=== PATIENT | male | born 1930 | race Caucasian/White ===

== ENCOUNTER 2017-11-07 21:52 | Inpatient (IN) ==
[2017-11-07] MEDS ORDERED: Naloxone 0.4 MG/ML INJ IVP PRN (23:43)
[2017-11-07] MEDS ORDERED: Acetaminophen 325 MG TABLET PO PRN (23:43)
[2017-11-07] MEDS ORDERED: Potassium Phosphate 44 MEQ in 0.9 % Sodium Chloride 250 ML IVPB PRN (23:47)
--- NOTE | 2017-11-07 23:58 | Internal Med History&Physical ---
<Kaden Brower - Last Filed: 11/08/17 03:51> Date of Encounter: 11/08/17 Time of Encounter: 23:58 Internal Medicine - H&P: HPI Chief complaint: Chest pain Admitted From: Hospital to Hospital Transfer History of present illness: Mr. Go is a 87 year old male with past mental history of prostate, bladder cancer as well with metastases to the bone. Presented to the emergency department at [facility] for a fall out of his wheelchair as well as chest pain. Family states he has been having chest pain for approximately 3 days and generalized weakness. He states had no nausea or vomiting been eating and drinking normal there has been no bloody stools or fevers or recent illnesses. Patient does have cardiac history where he was offered double bypass approximately 10 years ago but declined having this done and wanted to be treated medically. When patient fell day said he slid out of his wheelchair did not hit his head does not lose consciousness remembers the entire event. They said this was a witnessed fall. They said he did not hit his head. Patient's family does say that over the last week or so he seems to be talking randomly and not making sense sometimes but he is alert and oriented at all times. There otherwise is been no recent illnesses fevers chills. Patient did have urinary retention so approximately one week ago he had a Rader placed as had no problems since then. Past Med Surg Social Fam HX - Past Medical History Medical history: cancer, CHF, hypertension, other Psychiatric history: no psych history - Past Surgical History Surgical History: other - Social History Smoking Status: Never smoker Smokeless Tobacco Status: Yes Alcohol use: none Drug use: none Internal Medicine - H&P: Meds Aspirin 325 mg PO 10/07/17 [History] Carvedilol [Coreg] 6.25 mg PO 10/07/17 [History] Cholecalciferol (Vitamin D3) [Vitamin D3] 2,000 unit PO 10/07/17 [History] Lisinopril [Zestril] 20 mg PO DAILY 10/07/17 [History] Nitroglycerin [Nitrostat] 0.4 mg SL 10/07/17 [History] Spironolactone [Aldactone] 25 mg PO DAILY 10/07/17 [History] Triamcinolone Acet 0.1% CRM [Kenalog] 1 appl TP ONCE 10/07/17 [History] 3 Allergy/AdvReac Type Severity Reaction Status Date / Time metoprolol AdvReac Confusion Verified 11/01/17 13:32 montelukast [From Singulair] AdvReac Confusion Verified 11/01/17 13:32 simvastatin [From Zocor] AdvReac Cramping Verified 11/01/17 13:32 of the Muscles All Systems PM: A 10-system review of systems was performed and is negative for pertinent findings except as documented above in the HPI. - Constitutional Constitutional: fatigue, falls, no chills, no fever(s), no night sweats - EENT Eyes: no change in vision, no discharge, no pain, no photophobia Ears: no ear discharge, no ear pain, no tinnitus Nose, mouth and throat: no dysphagia, no nasal discharge, no neck pain, no sore throat - Cardiovascular Cardiovascular ROS IM: chest pain, no diaphoresis, no dyspnea, no lightheadedness, no palpitations, no syncope - Respiratory Respiratory: no cough, no dyspnea, no wheezing, no excessive phlegm production - Gastrointestinal Gastrointestinal: no abdominal pain, no diarrhea, no hematemesis, no hematochezia, no melena, no nausea, no vomiting - Musculoskeletal Musculoskeletal ROS IM: no numbness, no tingling - Integumentary Integumentary IM: no rash, no unusual bruising - Neurological Neurological ROS: no confusion, no convulsions, no focal weakness, no numbness, no tingling, no tremor(s) - Hematologic/Lymphatic Hematologic/Lymphatic: no easy bruising - Head Head exam: Present: atraumatic, normocephalic - Eye Eye exam: Present: PERRL, conjuntiva pink, sclera anicteric Pupils: Present: PERRL - Neck Neck exam general surgery: Present: supple, trachea midline. Absent: lymphadenopathy - Respiratory Respiratory exam: Present: CTAB. Absent: accessory muscle use, rales, rhonchi, wheezes - Cardiovascular Cardiovascular exam: Present: RRR, +S1, +S2. Absent: diastolic murmur, gallop, rubs, systolic murmur - GI/Abdominal GI/Abdominal exam: Present: normal bowel sounds, soft, no peritoneal signs. Absent: distended, tenderness - Extremities Exam Extremities exam: Present: warm, radial pulses palpable and symmetrical. Absent : calf tenderness, cyanotic, pedal edema - Neurological Exam Neurological exam: Present: CN II-XII intact, oriented X3, no focal deficits. Absent: pronater drift, facial droop, speech deficit - Skin Skin exam: Present: dry, intact Internal Med - H&P Results - Labs CBC & Chem 7: 11/08/17 00:33 11/08/17 00:33 - EKG Data -: EKG Interpreted by Myself EKG shows normal: sinus rhythm, axis, ST-T waves Rate: normal - EKG Data Prior EKG available for review: yes When compared to previous EKG: there is no significant change Interpretation IM: other (Left bundle-branch block with no other signs of ischemia. This is an old left bundle) - Assessment and plan (1) NSTEMI (non-ST elevated myocardial infarction) Current Visit: Yes Status: Acute Assessment and plan: Patient had chest pain for approximately 3 days he does have known history as 10 years ago he was offered double bypass but refused it and has been being treated medically. Patient has had no issues since that occurrence. He has never had any stents placed. He is on daily 324 mg aspirin otherwise no other blood thinners. Patient again does not want I passed to be done. [facility] emergency department he had a troponin of 2.4. He was hypotensive so they did not give any nitroglycerin. They did do a loading dose of 4000 units heparin there but did not start a drip. The did speak with cardiology Dr. Nguyen who said to admit here and they will consult with the patient. EKG had no acute ST changes did have left bundle branch which is old. Echocardiogram Daily aspirin full dose continuing home dose. We are going to hold the low-dose heparin at this time due to patient's hematuria. Trend troponins Consult cardiology awaiting recommendations (2) NORY (acute kidney injury) Current Visit: Yes Status: Acute Assessment and plan: Patient does not have any known chronic kidney disease. Creatinine was 3.21 appetite. This most likely is due to prerenal as patient is having poor perfusion. Patient is on lisinopril and spironolactone. He is currently getting 100 and miles per hour of normal saline. Urinalysis did show hematuria with glucose esterase but no nitrates or any bacteria. Most likely this is not a UTI. Patient did have blood in the catheter that was a noticeably dark red. It has since normalized Hold lisinopril and spironolactone. Continue to hydrate patient with 100 mL per hour of normal saline being sure not to over flared resuscitate cause pulmonary edema. 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 Singleton. 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 We will continue to monitor kidney function. Recommend talking to palliative about CODE STATUS and future goals of care. (4) Urinary retention Current Visit: Yes Status: Acute Assessment and plan: Patient does have history urinary retention due to his prostate cancer Rader was placed approximately 2 weeks ago he said no problems since then. He does have clots coming from the urine as well as dark red blood. we will continue to monitor Consult urology, awaiting recommendations (5) Fall Current Visit: Yes Status: Acute Assessment and plan: Patient did have a fall he did not hit his head did not lose consciousness. Patient has been more weak. He is normally wheelchair-bound. Family said there is been no changes to mentation as he is still alert and oriented 3. We will get a head CT before we start the heparin to be sure there is no intracranial bleeding. Although 4000 units heparin given at [facility] before this head CT. Qualifiers: Encounter type: initial encounter Qualified Code(s): W19.XXXA - Unspecified fall, initial encounter (6) DVT prophylaxis Current Visit: Yes Status: Acute Assessment and plan: Holding anticoagulation at this time due to hematuria - Time Spent With Patient Total time spent is greater than 50% in coordination of care (as documented) at patient's floor/unit and/or counseling patient: <NaidaNico - Last Filed: 11/08/17 06:18> Date of Encounter: 11/08/17 Time of Encounter: 02:30 - EENT Eyes: no change in vision Ears: no ear pain, no tinnitus Nose, mouth and throat: no nasal congestion, no sore throat - Cardiovascular Cardiovascular ROS IM: chest pain, no diaphoresis, no dyspnea - Respiratory Respiratory: no cough, no chest congestion - Gastrointestinal Gastrointestinal: no abdominal pain, no diarrhea, no vomiting - Genitourinary Genitourinary ROS male: hematuria, no dysuria, no flank pain - Musculoskeletal Musculoskeletal ROS IM: no joint swelling - Constitutional Vitals: Temp Pulse Resp BP Pulse Ox 98.3 F 73 17 116/58 96 11/08/17 04:00 11/08/17 06:00 11/08/17 06:00 11/08/17 06:00 11/08/17 06:00 General appearance: Present: cooperative, A&O X 3, pleasant - Head Head exam: Present: normal inspection - Eye Eye exam: Present: EOMI, PERRL. Absent: scleral icterus - ENT ENT exam: Present: mucous membranes dry, normal exam - Neck Neck exam general surgery: Present: supple - Respiratory Respiratory exam: Present: CTAB. Absent: rales, rhonchi, wheezes - Cardiovascular Cardiovascular exam: Present: RRR, +S1, +S2 - GI/Abdominal GI/Abdominal exam: Present: normal bowel sounds, soft. Absent: tenderness - Extremities Exam Extremities exam: Present: warm, radial pulses palpable and symmetrical. Absent : calf tenderness, pedal edema, tenderness - Back Exam Back exam: Absent: CVA tenderness (L), CVA tenderness (R) - Neurological Exam Neurological exam: Present: alert, CN II-XII intact, oriented X3, no focal deficits - Psychiatric Psychiatric exam: Present: normal affect, normal mood - Skin Skin exam: Present: dry, warm Internal Med - H&P Results - Labs CBC & Chem 7: 11/08/17 00:33 11/08/17 00:33 Labs: Short CBC 11/08/17 Range/Units 00:33 WBC 16.6 H (4.3-11.1) K/mcL Hgb 8.5 L (12.9-16.9) g/dL Hct 24.5 L (37.5-50.1) % Plt Count 202 (140-400) K/mcL Neutrophils # 13.2 H (1.6-8.9) K/mcL BMP 11/08/17 00:33 Sodium 132 L Potassium 4.1 Chloride 104 Carbon Dioxide 18 L BUN 112 H Creatinine 3.21 H Glucose 120 H Calcium 8.5 L Cardiac Enzymes 11/08/17 Range/Units 00:33 Troponin I 1.87 H* (< 0.04) ng/mL - EKG Data EKG comments: 11/08/17 06:09 LBBB - Impressions ITS Impressions Head CT 11/08/17 00:54 IMPRESSION: Small vessel chronic ischemic changes without acute hemorrhage or definite evidence for acute ischemia. Acute right maxillary sinusitis. D/ / Edy Siomns MD / Edy Simons MD Interpreting Provider: Edy Simons MD - Diagnostic Studies Chest x-ray Status: image reviewed by me (negative) - Attending Attestation I discussed the [facility] [place], past medical history, review of systems, lab data, and exam findings with Dr. Brower. I then saw and examined patient independently as well. He is resting comfortably but he does have some mild chest pain. He has no shortness of breath. He confirms history of coronary disease and the recommendation to undergo coronary artery bypass grafting several years ago. However, he refused and has not truly followed-up with cardiology since then. He now has been having chest pain over the last few days. He also suffers from metastatic prostate and bladder cancer. There were reports of the patient having altered mental status and generalized weakness. There was also concern for possible brain metastases, and so we ordered CT scan of his head and held off on further heparin even though he received a bolus in the ER. Head CT was negative. I was planning on restarting his heparin drip. However, he has developed hematuria with clots of blood in the urine. We will therefore hold off on heparin drip until he is seen by urology. If he continues to have hematuria, he will likely not be a candidate for any cardiac intervention. Additionally, he will need oncologic follow-up as well. Other than my comments above noted physical exam findings, I agree with Dr. Brower's assessment and plan. - Time Spent With Patient Total time spent is greater than 50% in coordination of care (as documented) at patient's floor/unit and/or counseling patient:
[2017-11-08] MEDS: 0.9 % Sodium Chloride 1,000 ML IVC SCH ×3 (00:29→17:36)
[2017-11-08] MEDS ORDERED: *HR* Heparin 5,000 UNIT/ML VIAL IVP PRN ×2 (00:38)
[2017-11-08] MEDS ORDERED: *HR* Heparin 5,000 UNIT/ML VIAL IVP ONE (00:38)
[2017-11-08] MEDS ORDERED: Heparin 25,000 UNIT/500 ML D5W 25,000 UNIT/500 ML BAG IVC SCH (00:45)
[2017-11-08 00:46] LABS: Basophils % 0.2 %; Eosinophils # 0.1 K/mcL (0.0-0.6); Eosinophils % 0.8 %; Hematocrit 24.5 % (37.5-50.1); Hemoglobin 8.5 g/dL (12.9-16.9); Immature Granulocytes % 2.8 % (0-4); Lymphocytes # 1.4 K/mcL (0.6-4.6); Lymphocytes % 8.5 %; Mean Corpuscular HGB Conc 34.7 g/dL (31.6-35.5); Mean Corpuscular Hemoglobin 31.5 pg (28.0-33.3); Mean Corpuscular Volume 90.7 fL (83.0-100.0); Mean Platelet Volume 11.4 fL (9.4-12.4); Monocytes # 1.3 K/mcL (0.0-1.3); Monocytes % 7.7 %; Neutrophils # 13.2 K/mcL (1.6-8.9); Platelet Count 202 K/mcL (140-400); Red Cell Distribution Width 15.1 % (11.5-14.5)
[2017-11-08 00:49] LABS: VBG Ionized Calcium 1.11 mmol/L (1.15-1.35)
[2017-11-08 00:50] LABS: INR 1.3; Prothrombin Time 14.4 Seconds (9.4-12.1)
[2017-11-08 01:01] LABS: Activated Partial Thrombo Time 26.8 Seconds (26.0-36.0)
[2017-11-08 01:07] LABS: Magnesium 1.9 mg/dL (1.6-2.6); Phosphorous 4.2 mg/dL (2.7-4.5)
[2017-11-08 01:08] LABS: Calcium 8.5 mg/dL (8.6-10.3); Potassium 4.1 mEq/L (3.5-5.1)
[2017-11-08] MEDS: Albuterol 2.5 MG/3 ML NEBULIZER IH PRN (06:20)
--- NOTE | 2017-11-08 08:34 | Internal Med Progress Note ---
Date of Encounter: 11/08/17 Time of Encounter: 08:00 - Assessment and plan (1) NSTEMI (non-ST elevated myocardial infarction) Current Visit: Yes Status: Acute Assessment and plan: Ongoing chest pain of 3 days duration. Had refused double bypass about 10 years ago. continue ACS protocol without anticoagulation 2/2 to hematuria. Troponins elevated up to 1.8. Cardiology consulted. F/U 2D echo (2) Prostate cancer metastatic to bone Current Visit: Yes Status: Acute Assessment and plan: Continue outpatient follow up. consult palliative care (3) Hematuria Current Visit: Yes Status: Acute Assessment and plan: Hx of prostate and bladder cancer. Urology consult. hold anticoagulation (4) NORY (acute kidney injury) Current Visit: Yes Status: Acute Assessment and plan: Monitor creatinine. Give IV fluids. Hold nephrotoxic meds (5) Leukocytosis Current Visit: Yes Status: Acute Assessment and plan: Star on ceftriaxone for possible UTi 2/2 to indwelling catheter. Obtain CXR, blood cultures, urinalysis Qualifiers: Leukocytosis type: unspecified Qualified Code(s): D72.829 - Elevated white blood cell count, unspecified (6) Urinary retention Current Visit: Yes Status: Acute Assessment and plan: Rader in place. appreciate urology recs - Time Spent With Patient Total time spent is greater than 50% in coordination of care (as documented) at patient's floor/unit and/or counseling patient: - Subjective Interval history: No acute events overnight - Constitutional Vitals: Temp Pulse Resp BP Pulse Ox 98.6 F 69 20 115/50 96 11/08/17 07:35 11/08/17 08:00 11/08/17 08:00 11/08/17 08:00 11/08/17 08:00 General appearance: Present: cooperative, A&O X 3, pleasant - Head Head exam: Present: atraumatic, normocephalic - Eye Eye exam: Present: PERRL, conjuntiva pink, sclera anicteric Pupils: Present: PERRL - Neck Neck exam general surgery: Present: supple, trachea midline. Absent: lymphadenopathy - Respiratory Respiratory exam: Present: CTAB. Absent: accessory muscle use, rales, rhonchi, wheezes - Cardiovascular Cardiovascular exam: Present: RRR, +S1, +S2. Absent: diastolic murmur, gallop, rubs, systolic murmur - GI/Abdominal GI/Abdominal exam: Present: normal bowel sounds, soft, no peritoneal signs. Absent: distended, tenderness - Extremities Exam Extremities exam: Present: warm, radial pulses palpable and symmetrical. Absent : calf tenderness, cyanotic, pedal edema - Neurological Exam Neurological exam: Present: CN II-XII intact, oriented X3, no focal deficits. Absent: pronater drift, facial droop, speech deficit - Skin Skin exam: Present: dry, intact Internal Medicine: Result - Labs CBC & Chem 7: 11/08/17 00:33 11/08/17 00:33 Labs: Short CBC 11/08/17 Range/Units 00:33 WBC 16.6 H (4.3-11.1) K/mcL Hgb 8.5 L (12.9-16.9) g/dL Hct 24.5 L (37.5-50.1) % Plt Count 202 (140-400) K/mcL Neutrophils # 13.2 H (1.6-8.9) K/mcL BMP 11/08/17 00:33 Sodium 132 L Potassium 4.1 Chloride 104 Carbon Dioxide 18 L BUN 112 H Creatinine 3.21 H Glucose 120 H Calcium 8.5 L Cardiac Enzymes 11/08/17 11/08/17 Range/Units 00:33 06:20 Troponin I 1.87 H* 1.52 H* (< 0.04) ng/mL - ABG Interpretation ABG results: PT/INR, D-dimer PT 14.4 Seconds (9.4-12.1) H 11/08/17 00:33 - Impressions Impressions Head CT 11/08/17 00:54 IMPRESSION: Small vessel chronic ischemic changes without acute hemorrhage or definite evidence for acute ischemia. Acute right maxillary sinusitis. D/ / Edy Simons MD / Edy Simons MD Interpreting Provider: Edy Simons MD Consult Discharge Plan - Plan Referrals: Aysha Huddleston CNP [Primary Care Provider] - Lacho Bucio DO [Family Provider] -
[2017-11-08] MEDS ORDERED: Lisinopril 20 MG TABLET PO SCH (09:00)
[2017-11-08] MEDS ORDERED: Spironolactone 25 MG TABLET PO SCH (09:00)
[2017-11-08] MEDS ORDERED: Perflutren Lipid Microsphere 1.3 ML in 0.9 % Sodium Chloride 8.7 ML IVP ONE (12:22)
--- NOTE | 2017-11-08 12:54 | Palliative - Consult Note ---
Date of Encounter: 11/08/17 Time of Encounter: 13:45 - Assessment and Plan (1) Back pain Current Visit: Yes Status: Acute Assessment and plan: Will begin Tramadol 50 mg every 6 hours PRN and monitor. Qualifiers: Back pain location: low back pain Chronicity: chronic Back pain laterality: midline Sciatica laterality: sciatica laterality unspecified Qualified Code(s): M54.40 - Lumbago with sciatica, unspecified side; G89.29 - Other chronic pain (2) Counseling regarding advanced directives and goals of care Current Visit: Yes Status: Acute Assessment and plan: Attempted goals of care discussion with pt, 2 sons (Mohinder and Fred) and daughter Shanta. Updated on clinical status - echo and cardiology consult pending. All children are aware that pt has refused heart cath, and invasive interventions. He lives at home with nephew (22 yrs old) that he has raised from a small child. His 5 years ago. He has no advanced directives in place. Discussion code status - pt did not make a decision at this time. Discussed that he would think about it. Discussed d/c options, rehab/home health/hospice, and will have social work follow up tomorrow. Will await further testing, he may not be eligible for hospice at current state. Family very interested in home health/passport services. Offered completion of POA while in hospital. Difficult to keep pt on track for conversation. Will f/u tomorrow with pt/family. (3) NSTEMI (non-ST elevated myocardial infarction) Current Visit: Yes Status: Acute Assessment and plan: Cardiology has been consulted. Patient refuses heart cath. Awaiting echo to be read. (4) Prostate cancer metastatic to bone Current Visit: Yes Status: Acute Assessment and plan: Urology following. (5) NORY (acute kidney injury) Current Visit: Yes Status: Acute Palliative-CN HPI - Data of Consult Requesting Physician: Denny Arvizu MD Primary Care Provider: Aysha Huddleston CNP Family Provider: Lacho Bucio DO - Consult Narrative History of present illness: Mr. Go is a 87 year old male with past mental history of prostate cancer with bone mets. bladder cancer, CHF, and HTN. He has a long history as well of skin cancers that have been removed. Presented to the emergency department at [facility] for a fall out of his wheelchair as well as chest pain. Family states he has been having chest pain for approximately 3 days and generalized weakness, also decreased appetite. Patient does have cardiac history where he was offered double bypass approximately 10 years ago but declined having this done and wanted to be treated medically. Troponin's have been elevated since admission - he received Heparin bolus, no initiation of heparin drip. Cardiology consult is pending. Patient's family does say that over the last week or so he seems to be talking randomly and not making sense sometimes but he is alert and oriented at times. Patient did have urinary retention family states that Rader placed about 5 weeks ago and has had no problems. He gets injections for prostate cancer, and just restarted these last month. (Dr. [facility]). He has not seen an oncologist since Dr. Weber left [place]. He currently is alert, awake and chatting with family. Does c/o mid back pain, and states he cannot get comfortable. Refused meals today, drinking liquids. Denies any other complaints. 2 sons and daughter at bedside. CC: Denny Arvizu MD Past Med Surg Social Fam HX - Past Medical History Medical history: cancer, CHF, hypertension, other Psychiatric history: no psych history - Past Surgical History Surgical History: other - Social History Smoking Status: Never smoker Smokeless Tobacco Status: Yes Alcohol use: none Drug use: none Medications and Allergies Aspirin 325 mg PO DAILY 10/07/17 [History] Carvedilol [Coreg] 6.25 mg PO BID 10/07/17 [History] Cholecalciferol (Vitamin D3) [Vitamin D3] 2,000 unit PO DAILY 10/07/17 [History] Lisinopril [Zestril] 20 mg PO DAILY 10/07/17 [History] Nitroglycerin [Nitrostat] 0.4 mg SL Q5MIN PRN 10/07/17 [History] Spironolactone [Aldactone] 25 mg PO DAILY 10/07/17 [History] Triamcinolone Acet 0.1% CRM [Kenalog] 1 appl TP DAILY 10/07/17 [History] Tamsulosin [Flomax] 0.4 mg PO DAILY 11/08/17 [History] 3 Allergy/AdvReac Type Severity Reaction Status Date / Time metoprolol AdvReac Confusion Verified 11/08/17 08:56 montelukast [From Singulair] AdvReac Confusion Verified 11/08/17 08:56 simvastatin [From Zocor] AdvReac Cramping Verified 11/08/17 08:56 of the Muscles Palliative Care-Exam - Constitutional Vitals: Temp Pulse Resp BP Pulse Ox 97.8 F 69 18 109/63 96 11/08/17 12:43 11/08/17 12:43 11/08/17 12:43 11/08/17 12:43 11/08/17 12:43 Internal Medicine - CN: Reslt - Labs CBC & Chem 7: 11/08/17 00:33 11/08/17 00:33 Labs: Short CBC 11/08/17 Range/Units 00:33 WBC 16.6 H (4.3-11.1) K/mcL Hgb 8.5 L (12.9-16.9) g/dL Hct 24.5 L (37.5-50.1) % Plt Count 202 (140-400) K/mcL Neutrophils # 13.2 H (1.6-8.9) K/mcL BMP 11/08/17 00:33 Sodium 132 L Potassium 4.1 Chloride 104 Carbon Dioxide 18 L BUN 112 H Creatinine 3.21 H Glucose 120 H Calcium 8.5 L Cardiac Enzymes 11/08/17 11/08/17 Range/Units 00:33 06:20 Troponin I 1.87 H* 1.52 H* (< 0.04) ng/mL - ABG Interpretation ABG results: PT/INR, D-dimer PT 14.4 Seconds (9.4-12.1) H 11/08/17 00:33 - Impressions Impressions Head CT 11/08/17 00:54 IMPRESSION: Small vessel chronic ischemic changes without acute hemorrhage or definite evidence for acute ischemia. Acute right maxillary sinusitis. D/ / Edy Simons MD / Edy Simons MD Interpreting Provider: Edy Simons MD Chest X-Ray 11/08/17 08:26 IMPRESSION: Stable chest with no new acute cardiopulmonary findings. D/ / Lolis Betts MD / Lolis Betts MD Interpreting Provider: Lolis Betts MD Consult Discharge Plan - Plan Referrals: Lacho Bucio DO [Family Provider] - Aysha Huddleston, [employer] OPERATOR [Primary Care Provider] - Palliative Quality Palliative Quality: Screen for Code Status: Yes, Screen for Goals of Care: Yes, Screen for Pain: Yes, If Pain Regimen Started, Initiate Bowel Regimen: NA, Screen for Nausea/Vomitting: Yes Code Status: 11/07/17 23:43 Resuscitation Status: Active [RES] Routine Comment: Resuscitation Status: Full Code
--- NOTE | 2017-11-08 13:34 | Cardiology Consult Note ---
Date of Encounter: 11/08/17 Time of Encounter: 13:30 Assessment and Plan (1) NSTEMI (non-ST elevated myocardial infarction) Current Visit: Yes Status: Acute Conservative medical management due to known extensive CAD and patient and son both decline any invasive cardiac procedures. They agree with an ECHO for risk stratification for his comorbidities. ASA 81 mg daily if not contraindicated Metoprolol 12.5 mg BID titrate as tolerated Heparin IV if troponins continue to rise above 3 for 48 hours and hold Discussion w patient/family: The assessment and plan as outlined above was discussed with the patient and/or family members who expressed understanding and agreement. All questions were answered. Thank you for involving us in the care of your patient. Please call with any questions. History of Present Illness Consult date: 11/08/17 Consult reason: NSTEMI Chief complaint: Chest Pain History of present illness: Mr. Go is a 87 year old male with long standing hx of severe CAD but has refused CABG and PCI > 10 years ago. He currently presents with prostate/ bladder CA with mets found to have a NSTEMI. Patient and son bot decline any invasive cardiac procedures understanding the high risk of morbidity and mortality not proceeding with LHC/CABG. Patient has multiple CRF's and comorbidities which place the patient at high risk for complications with a LHC. Both patient and son agree with conservative medical management. Past Med Surg Social Fam HX - Past Medical History Medical history: cancer, CHF, hypertension, other Psychiatric history: no psych history - Past Surgical History Surgical History: other - Social History Smoking Status: Never smoker Smokeless Tobacco Status: Yes Alcohol use: none Drug use: none Medications and Allergies Aspirin 325 mg PO DAILY 10/07/17 [History] Carvedilol [Coreg] 6.25 mg PO BID 10/07/17 [History] Cholecalciferol (Vitamin D3) [Vitamin D3] 2,000 unit PO DAILY 10/07/17 [History] Lisinopril [Zestril] 20 mg PO DAILY 10/07/17 [History] Nitroglycerin [Nitrostat] 0.4 mg SL Q5MIN PRN 10/07/17 [History] Spironolactone [Aldactone] 25 mg PO DAILY 10/07/17 [History] Triamcinolone Acet 0.1% CRM [Kenalog] 1 appl TP DAILY 10/07/17 [History] Tamsulosin [Flomax] 0.4 mg PO DAILY 11/08/17 [History] 3 Allergy/AdvReac Type Severity Reaction Status Date / Time metoprolol AdvReac Confusion Verified 11/08/17 08:56 montelukast [From Singulair] AdvReac Confusion Verified 11/08/17 08:56 simvastatin [From Zocor] AdvReac Cramping Verified 11/08/17 08:56 of the Muscles All Systems Review: The remainder of the systems were reviewed and are negative Physical Examination Vital Signs, Last 4 Hours Temp Pulse Resp BP Pulse Ox 11/08/17 12:58 97.8 F 69 18 109/63 96 11/08/17 12:43 97.8 F 69 18 109/63 96 General: Conversant, No Apparent Distress HEENT: Atraumatic, Normocephaly, Mucus Membranes Moist Neck: No JVD, Normal carotid pulses Cardiac: Reg Rate and Rhythm, Normal S1 and S2, No Murmur Lungs: Normal Breath Sounds, No Wheeze, Rales, Rhonchi Neuro: Alert and responsive, No focal deficits noted Abdomen: Soft, Non-Tender Skin: No rashes noted on visualized skin Musculoskeletal: No Chest Wall Tenderness Extremities: No Clubbing, No Cyanosis, No Edema, Normal Pulses Results 11/08/17 00:33 11/08/17 00:33 Lab Results 11/08/17 11/08/17 11/08/17 00:33 00:33 00:33 WBC 16.6 H Hgb 8.5 L Hct 24.5 L Plt Count 202 INR APTT Sodium Potassium Chloride Carbon Dioxide BUN Creatinine Glucose Calcium Magnesium 1.9 Troponin I 1.87 H* 11/08/17 11/08/17 11/08/17 00:33 00:33 06:20 WBC Hgb Hct Plt Count INR 1.3 APTT 26.8 Sodium 132 L Potassium 4.1 Chloride 104 Carbon Dioxide 18 L BUN 112 H Creatinine 3.21 H Glucose 120 H Calcium 8.5 L Magnesium Troponin I 1.52 H* 11/08/17 12:32 WBC Hgb Hct Plt Count INR APTT Sodium Potassium Chloride Carbon Dioxide BUN Creatinine Glucose Calcium Magnesium Troponin I 1.26 H* Consult Discharge Plan - Plan Referrals: Lacho Bucio DO [Family Provider] - Aysha Huddleston CNP [Primary Care Provider] -
[2017-11-08] MEDS: Aspirin 325 MG TABLET PO SCH (14:04)
[2017-11-08] MEDS: cefTRIAXone 2,000 MG in Water for inj. (sterile) 20 ML 20 ML IVP SCH (14:16)
[2017-11-08] MEDS: Cholecalciferol (D-3) 1,000 UNIT TABLET PO SCH (14:16)
--- NOTE | 2017-11-08 15:23 | Urology - Consult Note ---
Date of Encounter: 11/08/17 Time of Encounter: 15:21 - Assessment and Plan (1) NORY (acute kidney injury) Current Visit: Yes Status: Acute Assessment and plan: Patient's serum creatinine still elevated. We will wait for repeat tomorrow. No obvious hydronephrosis seen on CT scan. (2) Hematuria Current Visit: Yes Status: Acute Assessment and plan: Unsure it secondary to traumatic catheter placement or if patient has bladder tumor and bladder. Patient has declined surveillance cystoscopy in the past. We will continue with observation. 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 Expect patient's PSA to slowly decrease. (4) Urinary retention Current Visit: Yes Status: Acute Assessment and plan: Unsure of true the urinary retention as I am unable to find documentation of volume returned from initial catheter placement. We will continue with catheter at this time. Urology CN:HPI Consult date: 11/08/17 Reason for consult Urology: Gross Hematuria Requesting physician: Nico Pascal History of present illness: Jacob is a 87-year-old male well known to me secondary to history of bladder cancer as well as metastatic prostate cancer. Patient was seen by me last week and underwent Lupron shot for his metastatic prostate cancer. Patient now subsequently admitted to the hospital secondary to failure to thrive and recent fall. According the patient's son, patient has had minimal appetite for quite some time. Patient had catheter placed upon arrival to the hospital. He did have some blood in the catheter after placement. It is draining clear urine at this time. Patient was also found to have a elevated serum creatinine. Patient did have a CT abdomen and pelvis done which revealed multiple metastatic lesions as well as pelvic lymphadenopathy. No hydronephrosis was seen. Past Med Surg Social Fam HX - Past Medical History Medical history: cancer, CHF, hypertension, other Psychiatric history: no psych history - Past Surgical History Surgical History: other - Social History Smoking Status: Never smoker Smokeless Tobacco Status: Yes Alcohol use: none Drug use: none Medications and Allergies Aspirin 325 mg PO DAILY 10/07/17 [History] Carvedilol [Coreg] 6.25 mg PO BID 10/07/17 [History] Cholecalciferol (Vitamin D3) [Vitamin D3] 2,000 unit PO DAILY 10/07/17 [History] Lisinopril [Zestril] 20 mg PO DAILY 10/07/17 [History] Nitroglycerin [Nitrostat] 0.4 mg SL Q5MIN PRN 10/07/17 [History] Spironolactone [Aldactone] 25 mg PO DAILY 10/07/17 [History] Triamcinolone Acet 0.1% CRM [Kenalog] 1 appl TP DAILY 10/07/17 [History] Tamsulosin [Flomax] 0.4 mg PO DAILY 11/08/17 [History] 3 Allergy/AdvReac Type Severity Reaction Status Date / Time metoprolol AdvReac Confusion Verified 11/08/17 08:56 montelukast [From Singulair] AdvReac Confusion Verified 11/08/17 08:56 simvastatin [From Zocor] AdvReac Cramping Verified 11/08/17 08:56 of the Muscles Review of Systems ROS unobtainable: due to mental status Exam Initial Vital Signs Temp Pulse Resp BP Pulse Ox 98.0 F 74 18 103/55 96 11/07/17 23:49 11/07/17 23:49 11/07/17 23:49 11/07/17 23:49 11/07/17 23:49 General/Neuological: alert and oriented x 3 Eyes: normal pupils, non-icteric Neck: no lymphadenopathy noted, supple to touch Cardiovascular: RRR, no murmurs Respiratory: normal respiratory effort, clear bilaterally ABD: soft, nontender, no masses palpated, good bowel sounds Back: no pain on percussion bilaterally : normal phallus, normal scrotum, testicles and epididymides normal, urethral meatus normal, catheter in place draining clear urine. There is some old blood in the tubing. Rectal: Declined by the patient Skin: no rashes noted Musculoskeletal: normal gait, FROMx4 Urology Results - Labs 11/08/17 00:33 11/08/17 00:33 Abnormal lab results WBC 16.6 K/mcL (4.3-11.1) H 11/08/17 00:33 RBC 2.70 M/mcL (4.19-5.50) L 11/08/17 00:33 Hgb 8.5 g/dL (12.9-16.9) L 11/08/17 00:33 Hct 24.5 % (37.5-50.1) L 11/08/17 00:33 RDW 15.1 % (11.5-14.5) H 11/08/17 00:33 Neutrophils # 13.2 K/mcL (1.6-8.9) H 11/08/17 00:33 PT 14.4 Seconds (9.4-12.1) H 11/08/17 00:33 Sodium 132 mEq/L (136-145) L 11/08/17 00:33 Carbon Dioxide 18 mEq/L (23-29) L 11/08/17 00:33 BUN 112 mg/dL (8-23) H 11/08/17 00:33 Creatinine 3.21 mg/dL (0.70-1.30) H 11/08/17 00:33 Est GFR ( Amer) 22 (> 60) L 11/08/17 00:33 Est GFR (Non-Af Amer) 18 (> 60) L 11/08/17 00:33 BUN/Creatinine Ratio 35 (6-26) H 11/08/17 00:33 Glucose 120 mg/dL (70-105) H 11/08/17 00:33 POC Glucose 108 mg/dL (70-99) H 11/08/17 05:31 Calculated Osmolality 311 (280-300) H 11/08/17 00:33 Calcium 8.5 mg/dL (8.6-10.3) L 11/08/17 00:33 Venous Ioniz Calcium 1.11 mmol/L (1.15-1.35) L 11/08/17 00:44 Troponin I 1.26 ng/mL (< 0.04) H* 11/08/17 12:32 Diabetes panel 11/08/17 Range/Units 00:33 Sodium 132 L (136-145) mEq/L Potassium 4.1 (3.5-5.1) mEq/L Chloride 104 (98-107) mEq/L Carbon Dioxide 18 L (23-29) mEq/L BUN 112 H (8-23) mg/dL Creatinine 3.21 H (0.70-1.30) mg/dL Glucose 120 H (70-105) mg/dL Calcium 8.5 L (8.6-10.3) mg/dL Calcium panel 11/08/17 11/08/17 Range/Units 00:33 00:33 Calcium 8.5 L (8.6-10.3) mg/dL Phosphorus 4.2 (2.7-4.5) mg/dL Pituitary panel 11/08/17 Range/Units 00:33 Sodium 132 L (136-145) mEq/L Potassium 4.1 (3.5-5.1) mEq/L Chloride 104 (98-107) mEq/L Carbon Dioxide 18 L (23-29) mEq/L BUN 112 H (8-23) mg/dL Creatinine 3.21 H (0.70-1.30) mg/dL Glucose 120 H (70-105) mg/dL Calcium 8.5 L (8.6-10.3) mg/dL Adrenal panel 11/08/17 Range/Units 00:33 Sodium 132 L (136-145) mEq/L Potassium 4.1 (3.5-5.1) mEq/L Chloride 104 (98-107) mEq/L Carbon Dioxide 18 L (23-29) mEq/L BUN 112 H (8-23) mg/dL Creatinine 3.21 H (0.70-1.30) mg/dL Glucose 120 H (70-105) mg/dL Calcium 8.5 L (8.6-10.3) mg/dL All other labs normal. - Imaging CT scan - abdomen: image reviewed CT scan - pelvis: image reviewed Consult Discharge Plan - Plan Referrals: Lacho Bucio DO [Family Provider] - Aysha Huddleston, SARA [Primary Care Provider] -
[2017-11-08] MEDS: traMADol 50 MG TABLET PO PRN (16:21)
[2017-11-08] MEDS: *HR* Heparin 5,000 UNIT/ML VIAL SQ SCH (16:22)
[2017-11-09] MEDS: 0.9 % Sodium Chloride 1,000 ML IVC SCH ×2 (00:18→10:35)
[2017-11-09] MEDS: traMADol 50 MG TABLET PO PRN (00:33)
[2017-11-09 03:32] LABS: Acinetobacter baumannii by PCR Not Detected (Not Detect); Candida albicans by PCR Not Detected (Not Detect); Candida glabrata by PCR Not Detected (Not Detect); Candida krusei by PCR Not Detected (Not Detect); Candida parapsilosis by PCR ***DETECTED*** (Not Detect); Candida tropicalis by PCR Not Detected (Not Detect); Enterococcus by PCR Not Detected (Not Detect); Escherichia coli by PCR Not Detected (Not Detect); Klebsiella oxytoca by PCR Not Detected (Not Detect); Klebsiella pneumoniae by PCR Not Detected (Not Detect); Pseudomonas aeruginosa by PCR Not Detected (Not Detect); Serratia marcescens by PCR Not Detected (Not Detect); Staphylococcus aureus by PCR Not Detected (Not Detect); Streptococcus agalactiae(B)PCR Not Detected (Not Detect); Streptococcus by PCR Not Detected (Not Detect); Streptococcus pneumoniae PCR Not Detected (Not Detect); Streptococcus pyogenes (A) PCR Not Detected (Not Detect); blaKPC Carbapenem-Resist Gene Not Detected (Not Detect)
[2017-11-09] MEDS: *HR* Heparin 5,000 UNIT/ML VIAL SQ SCH ×2 (05:26→17:31)
[2017-11-09 06:26] LABS: Hematocrit 23.1 % (37.5-50.1); Hemoglobin 7.6 g/dL (12.9-16.9); Mean Corpuscular HGB Conc 32.9 g/dL (31.6-35.5); Mean Corpuscular Hemoglobin 30.5 pg (28.0-33.3); Mean Corpuscular Volume 92.8 fL (83.0-100.0); Mean Platelet Volume 11.4 fL (9.4-12.4); Platelet Count 235 K/mcL (140-400); Red Blood Count 2.49 M/mcL (4.19-5.50); Red Cell Distribution Width 15.4 % (11.5-14.5)
[2017-11-09 06:47] LABS: Calcium 8.4 mg/dL (8.6-10.3); Potassium 4.6 mEq/L (3.5-5.1)
[2017-11-09 07:09] LABS: Eosinophils # 0.3 K/mcL (0.0-0.6); Lymphocytes # 1.1 K/mcL (0.6-4.6); Monocytes # 0.8 K/mcL (0.0-1.3); Platelet Estimate Normal (Normal)
[2017-11-09 07:10] LABS: Hypochromasia Present (Not Present)
[2017-11-09] MEDS ORDERED: Fluconazole 400 MG/200 ML 400 MG/200 ML BAG IVPB ONE (07:40)
[2017-11-09] MEDS ORDERED: traMADol 50 MG TABLET PO PRN (10:04)
[2017-11-09] MEDS: Cholecalciferol (D-3) 1,000 UNIT TABLET PO SCH (10:33)
[2017-11-09] MEDS: cefTRIAXone 2,000 MG in Water for inj. (sterile) 20 ML 20 ML IVP SCH (10:34)
[2017-11-09] MEDS: Aspirin 325 MG TABLET PO SCH (10:37)
[2017-11-09] MEDS: Albuterol 2.5 MG/3 ML NEBULIZER IH PRN ×2 (10:55→14:44)
--- NOTE | 2017-11-09 11:04 | Urology Progress Note ---
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 No additional therapy at this time. (4) Urinary retention Current Visit: Yes Status: Acute Assessment and plan: Patient will need to continue with catheter. He will need follow-up in 3 weeks for possible catheter change. Call with any questions. Progress Note Narrative: Patient seen this morning. Patient still with poor appetite. Urine has cleared in catheter. Objective Initial Vital Signs Temp Pulse Resp BP Pulse Ox 98.0 F 74 18 103/55 96 11/07/17 23:49 11/07/17 23:49 11/07/17 23:49 11/07/17 23:49 11/07/17 23:49 - General physical appearance Present: well developed, no pain - Abdomen Present: soft. Absent: tender - Genitourinary Present: normal penis with no external lesions (Urine clear in catheter tubing) , other - Labs 11/09/17 05:55 11/09/17 05:55 Diabetes panel 11/09/17 Range/Units 05:55 Sodium 137 (136-145) mEq/L Potassium 4.6 (3.5-5.1) mEq/L Chloride 111 H (98-107) mEq/L Carbon Dioxide 16 L (23-29) mEq/L BUN 99 H (8-23) mg/dL Creatinine 2.52 H (0.70-1.30) mg/dL Glucose 110 H (70-105) mg/dL Calcium 8.4 L (8.6-10.3) mg/dL Calcium panel 11/09/17 Range/Units 05:55 Calcium 8.4 L (8.6-10.3) mg/dL Pituitary panel 11/09/17 Range/Units 05:55 Sodium 137 (136-145) mEq/L Potassium 4.6 (3.5-5.1) mEq/L Chloride 111 H (98-107) mEq/L Carbon Dioxide 16 L (23-29) mEq/L BUN 99 H (8-23) mg/dL Creatinine 2.52 H (0.70-1.30) mg/dL Glucose 110 H (70-105) mg/dL Calcium 8.4 L (8.6-10.3) mg/dL Adrenal panel 11/09/17 Range/Units 05:55 Sodium 137 (136-145) mEq/L Potassium 4.6 (3.5-5.1) mEq/L Chloride 111 H (98-107) mEq/L Carbon Dioxide 16 L (23-29) mEq/L BUN 99 H (8-23) mg/dL Creatinine 2.52 H (0.70-1.30) mg/dL Glucose 110 H (70-105) mg/dL Calcium 8.4 L (8.6-10.3) mg/dL Consult Discharge Plan - Plan Referrals: Lacho Bucio DO [Family Provider] - Aysha Huddleston, SARA [Primary Care Provider] -
--- NOTE | 2017-11-09 11:11 | Event Note ---
Date of Encounter: 11/09/17 Time of Encounter: 11:08 - Cardiology Event Note TTE resulted--LVEF 10-15%. Severe LV systolic dysfunction. Severely dilated left ventricle. Diastolic dysfunction with elevated filling pressures. There is no LV thrombus. Definity echo contrast was used. Mild mitral regurgitation. Unable to estimate RVSP due to suboptimal TR gradient. IVC is dilated. Dr. Beck discussed options with pt and family yesterday, they declined all invasive procedures, wanted medical management only. Continue BB, ASA. ACEi if BP is able to tolerate. Would recommend statin if pt agreeable. Simvastatin listed as allergy. Agree with palliative consult given significantly reduced EF and since pt and family do not wish to pursue any invasive evaluation. Cardiology signing off. Reconsult PRN.
--- NOTE | 2017-11-09 12:03 | Palliative Progress Note ---
Date of Encounter: 11/09/17 Time of Encounter: 12:00 - Assessment and plan (1) Back pain Current Visit: Yes Status: Acute Assessment and plan: Continue Tramadol PRN Qualifiers: Back pain location: low back pain Chronicity: chronic Back pain laterality: midline Sciatica laterality: sciatica laterality unspecified (2) Counseling regarding advanced directives and goals of care Current Visit: Yes Status: Acute Assessment and plan: Met with pt, son, Mohinder, and daughter, Shanta regarding goals of care. Discussed results of echocardiogram. Patient desires best quality of life possible, and wishes to go home. They ultimately would like to enroll in hospice care, however, he did have blood culture come back + this am and Id consult pending. At this time, pt/family do wish to treat infection, and understand that hospice may be on hold depending upon the cost/length of treatment. Did discuss code status, and they did transition to DNRCC. He has nephew 22y/o that lives with him, but nephew has some limitations. Son will be moving onto patient's property within the next week or two. Will continue to follow closely. He will need multiple DME's set up prior to discharge. D/W Dr. Pierce. (3) NSTEMI (non-ST elevated myocardial infarction) Current Visit: Yes Status: Acute (4) Prostate cancer metastatic to bone Current Visit: Yes Status: Acute (5) NORY (acute kidney injury) Current Visit: Yes Status: Acute - Time Spent With Patient Total time spent is greater than 50% in coordination of care (as documented) at patient's floor/unit and/or counseling patient: 25 - 35 minutes - Subjective Interval history: Patient awake and alert, son Mohinder and daughter Shanta at bedside. He has been a little more comfortable since initiation of Tramadol. Vitals stable. Echocardiogram from yesterday noted - EF 15-20%. Severe LV systolic dysfunction. Severely dilated left ventricle. Diastolic dysfunction with elevated filling pressures. Mild mitral regurgitation. Unable to estimate RVSP due to suboptimal TR gradient. IVC is dilated. He is dyspneic with any exertion. Blood cultures + resulted this am. ID consult pending. - Constitutional Vitals: Abnormal lab results WBC 13.8 K/mcL (4.3-11.1) H 11/09/17 05:55 RBC 2.49 M/mcL (4.19-5.50) L 11/09/17 05:55 Hgb 7.6 g/dL (12.9-16.9) L 11/09/17 05:55 Hct 23.1 % (37.5-50.1) L 11/09/17 05:55 RDW 15.4 % (11.5-14.5) H 11/09/17 05:55 Myelocytes % 4.0 % (0) H 11/09/17 05:55 Neutrophils # 11.0 K/mcL (1.6-8.9) H 11/09/17 05:55 Hypochromasia Present (Not Present) A 11/09/17 05:55 PT 14.4 Seconds (9.4-12.1) H 11/08/17 00:33 Chloride 111 mEq/L (98-107) H 11/09/17 05:55 Carbon Dioxide 16 mEq/L (23-29) L 11/09/17 05:55 BUN 99 mg/dL (8-23) H 11/09/17 05:55 Creatinine 2.52 mg/dL (0.70-1.30) H 11/09/17 05:55 Est GFR ( Amer) 30 (> 60) L 11/09/17 05:55 Est GFR (Non-Af Amer) 24 (> 60) L 11/09/17 05:55 BUN/Creatinine Ratio 39 (6-26) H 11/09/17 05:55 Glucose 110 mg/dL (70-105) H 11/09/17 05:55 POC Glucose 108 mg/dL (70-99) H 11/08/17 05:31 Calculated Osmolality 315 (280-300) H 11/09/17 05:55 Calcium 8.4 mg/dL (8.6-10.3) L 11/09/17 05:55 Venous Ioniz Calcium 1.11 mmol/L (1.15-1.35) L 11/08/17 00:44 Troponin I 1.26 ng/mL (< 0.04) H* 11/08/17 12:32 C. parapsilosis (PCR) DETECTED (Not Detect) A 11/08/17 12:32 Enterobacteriac sp PCR DETECTED (Not Detect) A 11/08/17 12:32 E. cloacae complex PCR DETECTED (Not Detect) A 11/08/17 12:32 General appearance: Present: mild distress - Respiratory Respiratory exam: Present: decreased breath sounds Additional comments: Rales noted to bases - Cardiovascular Cardiovascular exam: Present: irregular rhythm - GI/Abdominal GI/Abdominal exam: Present: diminished bowel sounds, distended, soft - Extremities Exam Additional comments: generalized edema to all extremities - Neurological Exam Neurological exam: Present: alert, oriented X3, strengths equal and symetr throughout - Skin Skin exam: Present: dry, pallor, warm Palliative Quality Palliative Quality: Screen for Code Status: Yes, Screen for Goals of Care: Yes, Screen for Pain: Yes, If Pain Regimen Started, Initiate Bowel Regimen: NA, Screen for Nausea/Vomitting: Yes Code Status: 11/07/17 23:43 Resuscitation Status: Active [RES] Routine Comment: Resuscitation Status: Full Code 11/09/17 12:00 DNR [Resuscitation Status: Active] [RES] Routine Comment: Resuscitation Status: DNR-Comfort Care - Labs CBC & Chem 7: 11/09/17 05:55 11/09/17 05:55 Labs: Laboratory Results - last 24 hr 11/08/17 11/08/17 11/09/17 12:32 12:32 05:55 WBC RBC Hgb Hct MCV MCH MCHC RDW Plt Count MPV Seg Neutrophils % Band Neutrophils % Lymphocytes % Monocytes % Eosinophils % Myelocytes % Neutrophils # Lymphocytes # Monocytes # Eosinophils # Platelet Estimate Hypochromasia APTT 28.0 Sodium Potassium Chloride Carbon Dioxide BUN Creatinine Est GFR ( Amer) Est GFR (Non-Af Amer) BUN/Creatinine Ratio Glucose Calculated Osmolality Calcium Troponin I 1.26 H* A. baumannii (PCR) Not Detected Vicki albicans (PCR) Not Detected C. glabrata (PCR) Not Detected C. krusei (PCR) Not Detected C. parapsilosis (PCR) DETECTED A C. tropicalis (PCR) Not Detected Enterobacteriac sp PCR DETECTED A E. cloacae complex PCR DETECTED A Enterococcus sp PCR Not Detected E. coli (PCR) Not Detected H. influenzae (PCR) Not Detected Klebsiella oxytoca PCR Not Detected Klebsiella pneumoniae Not Detected List. monocytogenes PCR Not Detected N. meningitidis (PCR) Not Detected Proteus species (PCR) Not Detected Serratia marcescens PCR Not Detected Staphylococcus sp PCR Not Detected Staph aureus (PCR) Not Detected mecA-Methicil Res Gene N/A Streptococcus sp PCR Not Detected Group A Strep DNA Not Detected Group B Strep (PCR) Not Detected Strep pneumoniae (PCR) Not Detected P. aeruginosa (PCR) Not Detected Feli/B-Vanco Res Genes N/A KPC (blaKPC) Detect PCR Not Detected 11/09/17 11/09/17 05:55 05:55 WBC 13.8 H RBC 2.49 L Hgb 7.6 L Hct 23.1 L MCV 92.8 MCH 30.5 MCHC 32.9 RDW 15.4 H Plt Count 235 MPV 11.4 Seg Neutrophils % 76.0 Band Neutrophils % 4.0 Lymphocytes % 8.0 Monocytes % 6.0 Eosinophils % 2.0 Myelocytes % 4.0 H Neutrophils # 11.0 H Lymphocytes # 1.1 Monocytes # 0.8 Eosinophils # 0.3 Platelet Estimate Normal Hypochromasia Present A APTT Sodium 137 Potassium 4.6 Chloride 111 H Carbon Dioxide 16 L BUN 99 H Creatinine 2.52 H Est GFR ( Amer) 30 L Est GFR (Non-Af Amer) 24 L BUN/Creatinine Ratio 39 H Glucose 110 H Calculated Osmolality 315 H Calcium 8.4 L Troponin I A. baumannii (PCR) Vicki albicans (PCR) C. glabrata (PCR) C. krusei (PCR) C. parapsilosis (PCR) C. tropicalis (PCR) Enterobacteriac sp PCR E. cloacae complex PCR Enterococcus sp PCR E. coli (PCR) H. influenzae (PCR) Klebsiella oxytoca PCR Klebsiella pneumoniae List. monocytogenes PCR N. meningitidis (PCR) Proteus species (PCR) Serratia marcescens PCR Staphylococcus sp PCR Staph aureus (PCR) mecA-Methicil Res Gene Streptococcus sp PCR Group A Strep DNA Group B Strep (PCR) Strep pneumoniae (PCR) P. aeruginosa (PCR) Feli/B-Vanco Res Genes KPC (blaKPC) Detect PCR - Impressions Impressions Echocardiogram 11/08/17 00:41 Impressions: LVEF 10-15%. Severe LV systolic dysfunction. Severely dilated left ventricle. Diastolic dysfunction with elevated filling pressures. There is no LV thrombus. Definity echo contrast was used. Mild mitral regurgitation. Unable to estimate RVSP due to suboptimal TR gradient. IVC is dilated. No prior study for comparison. Findings communicated to ordering provider. Left Ventricular Wall Motion: Rest Echo Findings The apex, apical inferior, mid inferior, basal inferior, apical anterior, mid anterior, basal anterior, apical septal, mid inferior septal, basal inferior septal, apical lateral, mid anterior lateral, basal anterior lateral, mid anterior septal, mid inferior lateral, basal anterior septal and basal inferior lateral luu were hypokinetic. Findings: Study Quality * Technically adequate exam. ECG Findings * Normal sinus rhythm. Left Ventricle * LVEF 10-15%. * Severely dilated left ventricle. * Diastolic dysfunction with elevated filling pressures. * There is no LV thrombus. * Definity echo contrast was used. Right Ventricle * Normal right ventricular structure and function. Left Atrium * Normal left atrial size. Right Atrium * Normal right atrial size. Mitral Valve * Normal mitral valve structure. * No mitral stenosis. * Mild mitral regurgitation. Aortic Valve * Aortic valve not well visualized. * No aortic stenosis. * Trace aortic regurgitation. Tricuspid Valve * Tricuspid valve not well visualized. * No tricuspid regurgitation. * Estimated RA pressure is 8 mmHg. Pulmonic Valve * Pulmonic valve is not well visualized. * No pulmonic stenosis. * No pulmonic regurgitation. Pulmonary Artery * Pulmonary artery not well visualized. Aorta * Not optimally visualized. Pericardium * There is no pericardial effusion present. Interatrial Septum * No evidence of PFO by color Doppler. IVC * The IVC is dilated. * > 50% respiratory change - ABG Interpretation ABG results: PT/INR, D-dimer PT 14.4 Seconds (9.4-12.1) H 11/08/17 00:33 Consult Discharge Plan - Plan Referrals: Lacho Bucio DO [Family Provider] - Aysha Huddleston CNP [Primary Care Provider] -
--- NOTE | 2017-11-09 12:39 | Internal Med Progress Note ---
Date of Encounter: 11/09/17 Time of Encounter: 12:36 - Assessment and plan (1) Sepsis Current Visit: Yes Status: Suspected Assessment and plan: Blood culture positive for gram-negative rods. Likely Escherichia coli. Continue ceftriaxone. Await final culture results. Will repeat blood cultures. Qualifiers: Sepsis type: Escherichia coli Qualified Code(s): A41.51 - Sepsis due to Escherichia coli [E. coli] (2) NSTEMI (non-ST elevated myocardial infarction) Current Visit: Yes Status: Acute Assessment and plan: Continue medical management. Given his hematuria, not on IV heparin therapy. Has refused cardiac catheterization. Poor overall prognosis given his poor ejection fraction. 2-D echocardiogram showed an EF of 10-15%. High risk for complications. (3) Prostate cancer metastatic to bone Current Visit: Yes Status: Acute Assessment and plan: Follow-up outpatient with urology and oncology. (4) Urinary retention Current Visit: Yes Status: Acute Assessment and plan: With Rader catheter in place. (5) NORY (acute kidney injury) Current Visit: Yes Status: Acute (6) Hematuria Current Visit: Yes Status: Acute Assessment and plan: Patient continues to have hematuria but appears to be improving currently. Urology following. Avoiding anticoagulation at this time. Also holding off on aspirin for now. Hemoglobin 7.6 this morning. We will continue to follow. Transfuse if hemoglobin less than 7. (7) Leukocytosis Current Visit: Yes Status: Acute Qualifiers: Leukocytosis type: unspecified Qualified Code(s): D72.829 - Elevated white blood cell count, unspecified - Time Spent With Patient Total time spent is greater than 50% in coordination of care (as documented) at patient's floor/unit and/or counseling patient: - Subjective Interval history: Patient lying in bed. He reports that he is very uncomfortable In the bed and wishes to stand up and walk. Denies any chest pain at this time. Becomes very dyspneic with minimal exertion. No palpitations. He does understand his multiple medical problems going on with him. Does not wish for any interventions at this time. - Constitutional Vitals: Temp Pulse Resp BP Pulse Ox 98.4 F 80 16 108/70 98 11/09/17 12:02 11/09/17 12:02 11/09/17 12:02 11/09/17 12:02 11/09/17 12:02 General appearance: Present: cooperative, A&O X 3, pleasant, answers questions appropriately - Neck Neck exam general surgery: Present: supple, trachea midline. Absent: lymphadenopathy - Respiratory Respiratory exam: Present: CTAB. Absent: accessory muscle use, rales, rhonchi, wheezes - Cardiovascular Cardiovascular exam: Present: RRR, +S1, +S2. Absent: diastolic murmur, gallop, rubs, systolic murmur - GI/Abdominal GI/Abdominal exam: Present: normal bowel sounds, soft, no peritoneal signs. Absent: distended, tenderness - Extremities Exam Extremities exam: Present: warm, radial pulses palpable and symmetrical. Absent : calf tenderness, cyanotic, pedal edema - Neurological Exam Neurological exam: Present: alert, no focal deficits. Absent: facial droop, speech deficit Internal Medicine: Result - Labs CBC & Chem 7: 11/09/17 05:55 11/09/17 05:55 Labs: Short CBC 11/09/17 Range/Units 05:55 WBC 13.8 H (4.3-11.1) K/mcL Hgb 7.6 L (12.9-16.9) g/dL Hct 23.1 L (37.5-50.1) % Plt Count 235 (140-400) K/mcL Neutrophils # 11.0 H (1.6-8.9) K/mcL BMP 11/09/17 05:55 Sodium 137 Potassium 4.6 Chloride 111 H Carbon Dioxide 16 L BUN 99 H Creatinine 2.52 H Glucose 110 H Calcium 8.4 L Cardiac Enzymes 11/08/17 Range/Units 12:32 Troponin I 1.26 H* (< 0.04) ng/mL - ABG Interpretation ABG results: PT/INR, D-dimer PT 14.4 Seconds (9.4-12.1) H 11/08/17 00:33 - Impressions Impressions Echocardiogram 11/08/17 00:41 Impressions: LVEF 10-15%. Severe LV systolic dysfunction. Severely dilated left ventricle. Diastolic dysfunction with elevated filling pressures. There is no LV thrombus. Definity echo contrast was used. Mild mitral regurgitation. Unable to estimate RVSP due to suboptimal TR gradient. IVC is dilated. No prior study for comparison. Findings communicated to ordering provider. Left Ventricular Wall Motion: Rest Echo Findings The apex, apical inferior, mid inferior, basal inferior, apical anterior, mid anterior, basal anterior, apical septal, mid inferior septal, basal inferior septal, apical lateral, mid anterior lateral, basal anterior lateral, mid anterior septal, mid inferior lateral, basal anterior septal and basal inferior lateral luu were hypokinetic. Findings: Study Quality * Technically adequate exam. ECG Findings * Normal sinus rhythm. Left Ventricle * LVEF 10-15%. * Severely dilated left ventricle. * Diastolic dysfunction with elevated filling pressures. * There is no LV thrombus. * Definity echo contrast was used. Right Ventricle * Normal right ventricular structure and function. Left Atrium * Normal left atrial size. Right Atrium * Normal right atrial size. Mitral Valve * Normal mitral valve structure. * No mitral stenosis. * Mild mitral regurgitation. Aortic Valve * Aortic valve not well visualized. * No aortic stenosis. * Trace aortic regurgitation. Tricuspid Valve * Tricuspid valve not well visualized. * No tricuspid regurgitation. * Estimated RA pressure is 8 mmHg. Pulmonic Valve * Pulmonic valve is not well visualized. * No pulmonic stenosis. * No pulmonic regurgitation. Pulmonary Artery * Pulmonary artery not well visualized. Aorta * Not optimally visualized. Pericardium * There is no pericardial effusion present. Interatrial Septum * No evidence of PFO by color Doppler. IVC * The IVC is dilated. * > 50% respiratory change Consult Discharge Plan - Plan Referrals: Lacho Bucio DO [Family Provider] - Aysha Huddleston CNP [Primary Care Provider] -
[2017-11-09] MEDS ORDERED: *HR* OxyCODONE Immed Rel 5 MG TABLET PO PRN (15:44)
--- NOTE | 2017-11-09 17:20 | Infectious Disease Consult ---
Date of Encounter: 11/09/17 Time of Encounter: 17:18 Assessment and Plan (1) Candidemia Status: Acute Assessment and plan: Picked up on BCID in the blood but not the blood cultures yet Patrick parapsilosis Source not clear, patient does not have any central lines, high index of suspicion that is from the genitourinary system. 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 DC Rocephin Start ertapenem and 500 mg daily with pharmacy to help with the dosing Repeat blood cultures 2 (3) NORY (acute kidney injury) Status: Acute Assessment and plan: Per nephrology team (4) Back pain Status: Acute Qualifiers: Back pain location: low back pain Chronicity: chronic Back pain laterality: midline Sciatica laterality: bilateral sciatica Qualified Code(s ): M54.41 - Lumbago with sciatica, right side; M54.42 - Lumbago with sciatica, left side; G89.29 - Other chronic pain (5) NSTEMI (non-ST elevated myocardial infarction) Status: Acute Assessment and plan: Ejection fraction all the way down to 10 Cardiology is following. Prognosis guarded (6) Prostate cancer metastatic to bone Status: Acute (7) Urinary retention Status: Acute Assessment and plan: Indwelling Rader catheter Urology following We will discuss with them to see if we can exchange the Rader (8) Sepsis Status: Suspected Qualifiers: Sepsis type: Escherichia coli Qualified Code(s): A41.51 - Sepsis due to Escherichia coli [E. coli] Infectious Disease HPI - Data of Consult Patient: new to practice Consult date: 11/09/17 Requesting Physician: Robert Pierce MD Primary Care Provider: Aysha Huddleston CNP Family Provider: Lacho Bucio DO - Consult Narrative Reason for consult: sepsis History of present illness: Mr. Go is a 87 year old male Patient is an 87-year-old gentleman admitted to [place] on November 07 for chest pain and hospital to hospital transfer we get consulted today for candidemia and bacteremia with gram-negative rods culture results pending yet PCR picked Enterobacter cloacae. Patient with past medical history significant for prostate cancer, bladder cancer as well as metastases to the bone who apparently refused chemotherapy who resides at home with family and gets around using a wheelchair and does not use O2 nasal cannula presented to an outside hospital after having a fall from his wheelchair. Apparently patient has been having weakness for about 3 days. Patient was also having nonspecific complaints. Family at bedside and tells me he had no fevers, no chills and decreased appetite. Patient had no real specific complaints. Patient was not confused. Since presenting to the hospital patient has been afebrile with MAXIMUM TEMPERATURE of 99.3 Fahrenheit, no tachycardia. Presenting WBC was 17.2 thousand with neutrophilic predominance of 83% no bands. Patient was also in acute kidney injury with creatinine of 3.69 and a BUN of 117 and a troponin leak with a troponin of 2.4. A urinalysis revealed moderate leukocyte esterase and a blood culture on November 08 so far revealing gram-negative rods but serology PCR revealed Patrick parapsilosis and Enterobacter. A CT abdomen and pelvis revealed mixed lytic sclerotic lesions in the anterior of 3 vertebral body and subtle mottled lytic appearance involving the pelvic bone suspicious for additional metastases. Retroperitoneal and pelvic lymphadenopathy. Diffuse urinary bladder wall thickening with surrounding inflammatory stranding suggesting cystitis. A chest x-ray was done and revealed no acute process a 2- D echo was performed and read by Dr. lenny jonas which showed an ejection fraction of 10-15%. Patient was started on empiric Diflucan and Rocephin and we were asked to evaluate the patients make further recommendations. Currently patient laying in bed and appears comfortable no acute distress. He was having pain earlier and family tells me he just received a pain pill. Patient denies any headache denies seeing floaters or visual changes. Patient denies any chest pain or shortness of breath but he is wheezy on physical exam and he has an O2 nasal cannula. Patient currently does not have any chest pain. Patient does not have any nausea or vomiting abdominal pain diarrhea or constipation. Patient does not have any urinary symptoms but has an indwelling Rader. CC: Robert Pierce MD Past Med Surg Social Fam HX - Past Medical History Medical history: cancer, CHF, hypertension, other Psychiatric history: no psych history - Past Surgical History Surgical History: other - Social History Smoking Status: Never smoker Smokeless Tobacco Status: Yes Alcohol use: none Drug use: none Infectious Disease-CN:Meds Aspirin 325 mg PO DAILY 10/07/17 [History] Carvedilol [Coreg] 6.25 mg PO BID 10/07/17 [History] Cholecalciferol (Vitamin D3) [Vitamin D3] 2,000 unit PO DAILY 10/07/17 [History] Lisinopril [Zestril] 20 mg PO DAILY 10/07/17 [History] Nitroglycerin [Nitrostat] 0.4 mg SL Q5MIN PRN 10/07/17 [History] Spironolactone [Aldactone] 25 mg PO DAILY 10/07/17 [History] Triamcinolone Acet 0.1% CRM [Kenalog] 1 appl TP DAILY 10/07/17 [History] Tamsulosin [Flomax] 0.4 mg PO DAILY 11/08/17 [History] 3 Allergy/AdvReac Type Severity Reaction Status Date / Time metoprolol AdvReac Confusion Verified 11/08/17 08:56 montelukast [From Singulair] AdvReac Confusion Verified 11/08/17 08:56 simvastatin [From Zocor] AdvReac Cramping Verified 11/08/17 08:56 of the Muscles Review of systems: 10 point review of systems done, negative other for what mentioned in history of present illness. Exam - Constitutional Vitals: Temp Pulse Resp BP Pulse Ox 98.8 F 78 18 110/68 98 11/09/17 15:55 11/09/17 15:55 11/09/17 15:55 11/09/17 15:55 11/09/17 15:55 General appearance: disheveled, no acute distress, no febrile - Head Head exam: Present: atraumatic, normocephalic - Eye Eye exam: Present: EOMI, PERRL, sclera anicteric - ENT ENT exam: Present: mucous membranes dry Additional comments: no oral lesions - Neck Neck exam: Present: full ROM. Absent: tenderness - Respiratory Additional comments: Air sounds are audible both lung meza. Some expiratory wheezing noted. No crackles or rhonchi. Chest expanding symmetrically. - Cardiovascular Cardiovascular exam: Present: RRR, +S1, +S2. Absent: systolic murmur - GI/Abdominal GI/Abdominal exam: Present: distended, hyperactive bowel sounds, soft. Absent: rebound, tenderness - Extremities Exam Extremities exam: Present: normal inspection. Absent: pedal edema - Neurological Exam Neurological exam: Present: alert, oriented X3. Absent: facial droop - Skin Skin exam: Present: normal color. Absent: rash Infectious Disease CN: Results - Labs CBC & Chem 7: 11/09/17 05:55 11/09/17 05:55 Cultures: Cultures 11/08/17 12:32 Blood Culture - Preliminary Peripheral Venipuncture Gram Negative Bishop Serology: Serology 11/09/17 11/09/17 11/09/17 Range/Units 05:55 05:55 05:55 WBC 13.8 H (4.3-11.1) K/mcL RBC 2.49 L (4.19-5.50) M/mcL Hgb 7.6 L (12.9-16.9) g/dL Hct 23.1 L (37.5-50.1) % MCV 92.8 (83.0-100.0) fL MCH 30.5 (28.0-33.3) pg MCHC 32.9 (31.6-35.5) g/dL RDW 15.4 H (11.5-14.5) % Plt Count 235 (140-400) K/mcL MPV 11.4 (9.4-12.4) fL Immature Gran % (0-4) % Seg Neutrophils % 76.0 % Band Neutrophils % 4.0 (0-4) % Lymphocytes % 8.0 % Monocytes % 6.0 % Eosinophils % 2.0 % Basophils % % Myelocytes % 4.0 H (0) % Neutrophils # 11.0 H (1.6-8.9) K/mcL Lymphocytes # 1.1 (0.6-4.6) K/mcL Monocytes # 0.8 (0.0-1.3) K/mcL Eosinophils # 0.3 (0.0-0.6) K/mcL Basophils # (0.0-0.2) K/mcL Platelet Estimate Normal (Normal) Hypochromasia Present A (Not Present) PT (9.4-12.1) Seconds INR APTT 28.0 (26.0-36.0) Seconds Sodium 137 (136-145) mEq/L Potassium 4.6 (3.5-5.1) mEq/L Chloride 111 H (98-107) mEq/L Carbon Dioxide 16 L (23-29) mEq/L BUN 99 H (8-23) mg/dL Creatinine 2.52 H (0.70-1.30) mg/dL Est GFR ( Amer) 30 L (> 60) Est GFR (Non-Af Amer) 24 L (> 60) BUN/Creatinine Ratio 39 H (6-26) Glucose 110 H (70-105) mg/dL POC Glucose (70-99) mg/dL Calculated Osmolality 315 H (280-300) Calcium 8.4 L (8.6-10.3) mg/dL Venous Ioniz Calcium (1.15-1.35) mmol/L Phosphorus (2.7-4.5) mg/dL Magnesium (1.6-2.6) mg/dL Troponin I (< 0.04) ng/mL A. baumannii (PCR) (Not Detect) Patrick albicans (PCR) (Not Detect) C. glabrata (PCR) (Not Detect) C. krusei (PCR) (Not Detect) C. parapsilosis (PCR) (Not Detect) C. tropicalis (PCR) (Not Detect) Enterobacteriac sp PCR (Not Detect) E. cloacae complex PCR (Not Detect) Enterococcus sp PCR (Not Detect) E. coli (PCR) (Not Detect) H. influenzae (PCR) (Not Detect) Klebsiella oxytoca PCR (Not Detect) Klebsiella pneumoniae (Not Detect) List. monocytogenes PCR (Not Detect) N. meningitidis (PCR) (Not Detect) Proteus species (PCR) (Not Detect) Serratia marcescens PCR (Not Detect) Staphylococcus sp PCR (Not Detect) Staph aureus (PCR) (Not Detect) mecA-Methicil Res Gene (Not Detect) Streptococcus sp PCR (Not Detect) Group A Strep DNA (Not Detect) Group B Strep (PCR) (Not Detect) Strep pneumoniae (PCR) (Not Detect) P. aeruginosa (PCR) (Not Detect) Feli/B-Vanco Res Genes (Not Detect) KPC (blaKPC) Detect PCR (Not Detect) 11/08/17 11/08/17 11/08/17 Range/Units 12:32 12:32 06:20 WBC (4.3-11.1) K/mcL RBC (4.19-5.50) M/mcL Hgb (12.9-16.9) g/dL Hct (37.5-50.1) % MCV (83.0-100.0) fL MCH (28.0-33.3) pg MCHC (31.6-35.5) g/dL RDW (11.5-14.5) % Plt Count (140-400) K/mcL MPV (9.4-12.4) fL Immature Gran % (0-4) % Seg Neutrophils % % Band Neutrophils % (0-4) % Lymphocytes % % Monocytes % % Eosinophils % % Basophils % % Myelocytes % (0) % Neutrophils # (1.6-8.9) K/mcL Lymphocytes # (0.6-4.6) K/mcL Monocytes # (0.0-1.3) K/mcL Eosinophils # (0.0-0.6) K/mcL Basophils # (0.0-0.2) K/mcL Platelet Estimate (Normal) Hypochromasia (Not Present) PT (9.4-12.1) Seconds INR APTT (26.0-36.0) Seconds Sodium (136-145) mEq/L Potassium (3.5-5.1) mEq/L Chloride (98-107) mEq/L Carbon Dioxide (23-29) mEq/L BUN (8-23) mg/dL Creatinine (0.70-1.30) mg/dL Est GFR ( Amer) (> 60) Est GFR (Non-Af Amer) (> 60) BUN/Creatinine Ratio (6-26) Glucose (70-105) mg/dL POC Glucose (70-99) mg/dL Calculated Osmolality (280-300) Calcium (8.6-10.3) mg/dL Venous Ioniz Calcium (1.15-1.35) mmol/L Phosphorus (2.7-4.5) mg/dL Magnesium (1.6-2.6) mg/dL Troponin I 1.26 H* 1.52 H* (< 0.04) ng/mL A. baumannii (PCR) Not Detected (Not Detect) Patrick albicans (PCR) Not Detected (Not Detect) C. glabrata (PCR) Not Detected (Not Detect) C. krusei (PCR) Not Detected (Not Detect) C. parapsilosis (PCR) DETECTED A (Not Detect) C. tropicalis (PCR) Not Detected (Not Detect) Enterobacteriac sp PCR DETECTED A (Not Detect) E. cloacae complex PCR DETECTED A (Not Detect) Enterococcus sp PCR Not Detected (Not Detect) E. coli (PCR) Not Detected (Not Detect) H. influenzae (PCR) Not Detected (Not Detect) Klebsiella oxytoca PCR Not Detected (Not Detect) Klebsiella pneumoniae Not Detected (Not Detect) List. monocytogenes PCR Not Detected (Not Detect) N. meningitidis (PCR) Not Detected (Not Detect) Proteus species (PCR) Not Detected (Not Detect) Serratia marcescens PCR Not Detected (Not Detect) Staphylococcus sp PCR Not Detected (Not Detect) Staph aureus (PCR) Not Detected (Not Detect) mecA-Methicil Res Gene N/A (Not Detect) Streptococcus sp PCR Not Detected (Not Detect) Group A Strep DNA Not Detected (Not Detect) Group B Strep (PCR) Not Detected (Not Detect) Strep pneumoniae (PCR) Not Detected (Not Detect) P. aeruginosa (PCR) Not Detected (Not Detect) Feli/B-Vanco Res Genes N/A (Not Detect) KPC (blaKPC) Detect PCR Not Detected (Not Detect) 11/08/17 11/08/17 11/08/17 Range/Units 05:31 00:44 00:33 WBC (4.3-11.1) K/mcL RBC (4.19-5.50) M/mcL Hgb (12.9-16.9) g/dL Hct (37.5-50.1) % MCV (83.0-100.0) fL MCH (28.0-33.3) pg MCHC (31.6-35.5) g/dL RDW (11.5-14.5) % Plt Count (140-400) K/mcL MPV (9.4-12.4) fL Immature Gran % (0-4) % Seg Neutrophils % % Band Neutrophils % (0-4) % Lymphocytes % % Monocytes % % Eosinophils % % Basophils % % Myelocytes % (0) % Neutrophils # (1.6-8.9) K/mcL Lymphocytes # (0.6-4.6) K/mcL Monocytes # (0.0-1.3) K/mcL Eosinophils # (0.0-0.6) K/mcL Basophils # (0.0-0.2) K/mcL Platelet Estimate (Normal) Hypochromasia (Not Present) PT (9.4-12.1) Seconds INR APTT (26.0-36.0) Seconds Sodium 132 L (136-145) mEq/L Potassium 4.1 (3.5-5.1) mEq/L Chloride 104 (98-107) mEq/L Carbon Dioxide 18 L (23-29) mEq/L BUN 112 H (8-23) mg/dL Creatinine 3.21 H (0.70-1.30) mg/dL Est GFR ( Amer) 22 L (> 60) Est GFR (Non-Af Amer) 18 L (> 60) BUN/Creatinine Ratio 35 H (6-26) Glucose 120 H (70-105) mg/dL POC Glucose 108 H (70-99) mg/dL Calculated Osmolality 311 H (280-300) Calcium 8.5 L (8.6-10.3) mg/dL Venous Ioniz Calcium 1.11 L (1.15-1.35) mmol/L Phosphorus (2.7-4.5) mg/dL Magnesium (1.6-2.6) mg/dL Troponin I (< 0.04) ng/mL A. baumannii (PCR) (Not Detect) Patrick albicans (PCR) (Not Detect) C. glabrata (PCR) (Not Detect) C. krusei (PCR) (Not Detect) C. parapsilosis (PCR) (Not Detect) C. tropicalis (PCR) (Not Detect) Enterobacteriac sp PCR (Not Detect) E. cloacae complex PCR (Not Detect) Enterococcus sp PCR (Not Detect) E. coli (PCR) (Not Detect) H. influenzae (PCR) (Not Detect) Klebsiella oxytoca PCR (Not Detect) Klebsiella pneumoniae (Not Detect) List. monocytogenes PCR (Not Detect) N. meningitidis (PCR) (Not Detect) Proteus species (PCR) (Not Detect) Serratia marcescens PCR (Not Detect) Staphylococcus sp PCR (Not Detect) Staph aureus (PCR) (Not Detect) mecA-Methicil Res Gene (Not Detect) Streptococcus sp PCR (Not Detect) Group A Strep DNA (Not Detect) Group B Strep (PCR) (Not Detect) Strep pneumoniae (PCR) (Not Detect) P. aeruginosa (PCR) (Not Detect) Feli/B-Vanco Res Genes (Not Detect) KPC (blaKPC) Detect PCR (Not Detect) 11/08/17 11/08/17 11/08/17 Range/Units 00:33 00:33 00:33 WBC 16.6 H (4.3-11.1) K/mcL RBC 2.70 L (4.19-5.50) M/mcL Hgb 8.5 L (12.9-16.9) g/dL Hct 24.5 L (37.5-50.1) % MCV 90.7 (83.0-100.0) fL MCH 31.5 (28.0-33.3) pg MCHC 34.7 (31.6-35.5) g/dL RDW 15.1 H (11.5-14.5) % Plt Count 202 (140-400) K/mcL MPV 11.4 (9.4-12.4) fL Immature Gran % 2.8 (0-4) % Seg Neutrophils % 80.0 % Band Neutrophils % (0-4) % Lymphocytes % 8.5 % Monocytes % 7.7 % Eosinophils % 0.8 % Basophils % 0.2 % Myelocytes % (0) % Neutrophils # 13.2 H (1.6-8.9) K/mcL Lymphocytes # 1.4 (0.6-4.6) K/mcL Monocytes # 1.3 (0.0-1.3) K/mcL Eosinophils # 0.1 (0.0-0.6) K/mcL Basophils # 0.0 (0.0-0.2) K/mcL Platelet Estimate (Normal) Hypochromasia (Not Present) PT 14.4 H (9.4-12.1) Seconds INR 1.3 APTT 26.8 (26.0-36.0) Seconds Sodium (136-145) mEq/L Potassium (3.5-5.1) mEq/L Chloride (98-107) mEq/L Carbon Dioxide (23-29) mEq/L BUN (8-23) mg/dL Creatinine (0.70-1.30) mg/dL Est GFR ( Amer) (> 60) Est GFR (Non-Af Amer) (> 60) BUN/Creatinine Ratio (6-26) Glucose (70-105) mg/dL POC Glucose (70-99) mg/dL Calculated Osmolality (280-300) Calcium (8.6-10.3) mg/dL Venous Ioniz Calcium (1.15-1.35) mmol/L Phosphorus 4.2 (2.7-4.5) mg/dL Magnesium 1.9 (1.6-2.6) mg/dL Troponin I (< 0.04) ng/mL A. baumannii (PCR) (Not Detect) Patrick albicans (PCR) (Not Detect) C. glabrata (PCR) (Not Detect) C. krusei (PCR) (Not Detect) C. parapsilosis (PCR) (Not Detect) C. tropicalis (PCR) (Not Detect) Enterobacteriac sp PCR (Not Detect) E. cloacae complex PCR (Not Detect) Enterococcus sp PCR (Not Detect) E. coli (PCR) (Not Detect) H. influenzae (PCR) (Not Detect) Klebsiella oxytoca PCR (Not Detect) Klebsiella pneumoniae (Not Detect) List. monocytogenes PCR (Not Detect) N. meningitidis (PCR) (Not Detect) Proteus species (PCR) (Not Detect) Serratia marcescens PCR (Not Detect) Staphylococcus sp PCR (Not Detect) Staph aureus (PCR) (Not Detect) mecA-Methicil Res Gene (Not Detect) Streptococcus sp PCR (Not Detect) Group A Strep DNA (Not Detect) Group B Strep (PCR) (Not Detect) Strep pneumoniae (PCR) (Not Detect) P. aeruginosa (PCR) (Not Detect) Feli/B-Vanco Res Genes (Not Detect) KPC (blaKPC) Detect PCR (Not Detect) 11/08/17 Range/Units 00:33 WBC (4.3-11.1) K/mcL RBC (4.19-5.50) M/mcL Hgb (12.9-16.9) g/dL Hct (37.5-50.1) % MCV (83.0-100.0) fL MCH (28.0-33.3) pg MCHC (31.6-35.5) g/dL RDW (11.5-14.5) % Plt Count (140-400) K/mcL MPV (9.4-12.4) fL Immature Gran % (0-4) % Seg Neutrophils % % Band Neutrophils % (0-4) % Lymphocytes % % Monocytes % % Eosinophils % % Basophils % % Myelocytes % (0) % Neutrophils # (1.6-8.9) K/mcL Lymphocytes # (0.6-4.6) K/mcL Monocytes # (0.0-1.3) K/mcL Eosinophils # (0.0-0.6) K/mcL Basophils # (0.0-0.2) K/mcL Platelet Estimate (Normal) Hypochromasia (Not Present) PT (9.4-12.1) Seconds INR APTT (26.0-36.0) Seconds Sodium (136-145) mEq/L Potassium (3.5-5.1) mEq/L Chloride (98-107) mEq/L Carbon Dioxide (23-29) mEq/L BUN (8-23) mg/dL Creatinine (0.70-1.30) mg/dL Est GFR ( Amer) (> 60) Est GFR (Non-Af Amer) (> 60) BUN/Creatinine Ratio (6-26) Glucose (70-105) mg/dL POC Glucose (70-99) mg/dL Calculated Osmolality (280-300) Calcium (8.6-10.3) mg/dL Venous Ioniz Calcium (1.15-1.35) mmol/L Phosphorus (2.7-4.5) mg/dL Magnesium (1.6-2.6) mg/dL Troponin I 1.87 H* (< 0.04) ng/mL A. baumannii (PCR) (Not Detect) Patrick albicans (PCR) (Not Detect) C. glabrata (PCR) (Not Detect) C. krusei (PCR) (Not Detect) C. parapsilosis (PCR) (Not Detect) C. tropicalis (PCR) (Not Detect) Enterobacteriac sp PCR (Not Detect) E. cloacae complex PCR (Not Detect) Enterococcus sp PCR (Not Detect) E. coli (PCR) (Not Detect) H. influenzae (PCR) (Not Detect) Klebsiella oxytoca PCR (Not Detect) Klebsiella pneumoniae (Not Detect) List. monocytogenes PCR (Not Detect) N. meningitidis (PCR) (Not Detect) Proteus species (PCR) (Not Detect) Serratia marcescens PCR (Not Detect) Staphylococcus sp PCR (Not Detect) Staph aureus (PCR) (Not Detect) mecA-Methicil Res Gene (Not Detect) Streptococcus sp PCR (Not Detect) Group A Strep DNA (Not Detect) Group B Strep (PCR) (Not Detect) Strep pneumoniae (PCR) (Not Detect) P. aeruginosa (PCR) (Not Detect) Feli/B-Vanco Res Genes (Not Detect) KPC (blaKPC) Detect PCR (Not Detect) Consult Discharge Plan - Plan Referrals: Lacho Bucio DO [Family Provider] - Aysha Huddleston, SARA [Primary Care Provider] -
[2017-11-10 04:47] LABS: Basophils % 0.2 %; Eosinophils # 0.3 K/mcL (0.0-0.6); Eosinophils % 1.6 %; Hematocrit 23.1 % (37.5-50.1); Hemoglobin 7.6 g/dL (12.9-16.9); Immature Granulocytes % 3.6 % (0-4); Lymphocytes # 1.6 K/mcL (0.6-4.6); Lymphocytes % 9.2 %; Mean Corpuscular HGB Conc 32.9 g/dL (31.6-35.5); Mean Corpuscular Hemoglobin 31.4 pg (28.0-33.3); Mean Corpuscular Volume 95.5 fL (83.0-100.0); Mean Platelet Volume 11.2 fL (9.4-12.4); Monocytes % 5.9 %; Neutrophils # 13.8 K/mcL (1.6-8.9); Platelet Count 255 K/mcL (140-400); Red Blood Count 2.42 M/mcL (4.19-5.50); Red Cell Distribution Width 15.6 % (11.5-14.5); Segmented Neutrophils % 79.5 %
[2017-11-10 05:05] LABS: Calcium 8.5 mg/dL (8.6-10.3); Potassium 4.8 mEq/L (3.5-5.1)
[2017-11-10] MEDS: *HR* Heparin 5,000 UNIT/ML VIAL SQ SCH ×2 (05:52→17:27)
[2017-11-10] MEDS: Albuterol 2.5 MG/3 ML NEBULIZER IH PRN ×3 (07:49→18:30)
[2017-11-10] MEDS ORDERED: Fluconazole 200 MG/100 ML 200 MG/100 ML BAG IVPB SCH (09:00)
[2017-11-10] MEDS: 0.9 % Sodium Chloride 1,000 ML IVC SCH ×3 (09:25→22:30)
[2017-11-10] MEDS: Cholecalciferol (D-3) 1,000 UNIT TABLET PO SCH (09:25)
[2017-11-10] MEDS: Aspirin Enteric Coated 81 MG Tablet PO SCH (09:26)
[2017-11-10] MEDS: Fluconazole 200 MG/100 ML 200 MG/100 ML BAG IVPB SCH (09:26)
--- NOTE | 2017-11-10 10:09 | Palliative Progress Note ---
Date of Encounter: 11/10/17 Time of Encounter: 10:05 - Assessment and plan (1) Back pain Current Visit: Yes Status: Acute Assessment and plan: Continue Tylenol for mild pain, Tramadol for moderate pain, Oxycodone for more severe pain. Utilized Tramadol x 2 yesterday, Oxycodone x1. Qualifiers: Back pain location: low back pain Chronicity: chronic Back pain laterality: midline Sciatica laterality: bilateral sciatica (2) Counseling regarding advanced directives and goals of care Current Visit: Yes Status: Acute Assessment and plan: Patient undergoing treatment with IV antibiotics for sepsis. D/W son Mohinder, that this will affect discharge with hospice care, as they do desire treatment for the infection. Family states he will refuse custodial placement, and they feel they have enough family support to take him home with IV antibiotics when cleared here to go. D/W Mohinder that once IV antibiotic therapy is complete, home health could transition to hospice at that time, where cardiomyopathy/end stage cardiac disease would be his hospice diagnosis. Will continue to follow. 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 Denies shortness of breath. Juaquin Vines at bedside. Infectious disease consult noted. - Constitutional Vitals: Abnormal lab results WBC 17.4 K/mcL (4.3-11.1) H 11/10/17 04:13 RBC 2.42 M/mcL (4.19-5.50) L 11/10/17 04:13 Hgb 7.6 g/dL (12.9-16.9) L 11/10/17 04:13 Hct 23.1 % (37.5-50.1) L 11/10/17 04:13 RDW 15.6 % (11.5-14.5) H 11/10/17 04:13 Myelocytes % 4.0 % (0) H 11/09/17 05:55 Neutrophils # 13.8 K/mcL (1.6-8.9) H 11/10/17 04:13 Hypochromasia Present (Not Present) A 11/09/17 05:55 PT 14.4 Seconds (9.4-12.1) H 11/08/17 00:33 Sodium 132 mEq/L (136-145) L 11/10/17 04:13 Chloride 108 mEq/L (98-107) H 11/10/17 04:13 Carbon Dioxide 17 mEq/L (23-29) L 11/10/17 04:13 BUN 99 mg/dL (8-23) H 11/10/17 04:13 Creatinine 2.53 mg/dL (0.70-1.30) H 11/10/17 04:13 Est GFR ( Amer) 29 (> 60) L 11/10/17 04:13 Est GFR (Non-Af Amer) 24 (> 60) L 11/10/17 04:13 BUN/Creatinine Ratio 39 (6-26) H 11/10/17 04:13 POC Glucose 108 mg/dL (70-99) H 11/08/17 05:31 Calculated Osmolality 305 (280-300) H 11/10/17 04:13 Calcium 8.5 mg/dL (8.6-10.3) L 11/10/17 04:13 Venous Ioniz Calcium 1.11 mmol/L (1.15-1.35) L 11/08/17 00:44 Troponin I 1.26 ng/mL (< 0.04) H* 11/08/17 12:32 C. parapsilosis (PCR) DETECTED (Not Detect) A 11/08/17 12:32 Enterobacteriac sp PCR DETECTED (Not Detect) A 11/08/17 12:32 E. cloacae complex PCR DETECTED (Not Detect) A 11/08/17 12:32 - Respiratory Respiratory exam: Present: decreased breath sounds, CTAB - Cardiovascular Cardiovascular exam: Present: +S1, +S2 - GI/Abdominal GI/Abdominal exam: Present: normal bowel sounds, soft - Extremities Exam Additional comments: generalized edema to upper and lower extremities - Neurological Exam Neurological exam: Present: alert, oriented X3, strengths equal and symetr throughout - Skin Skin exam: Present: dry, pallor, warm Palliative Quality Palliative Quality: Screen for Code Status: Yes, Screen for Goals of Care: Yes, Screen for Pain: Yes, If Pain Regimen Started, Initiate Bowel Regimen: NA, Screen for Nausea/Vomitting: Yes Code Status: 11/07/17 23:43 Resuscitation Status: Active [RES] Routine Comment: Resuscitation Status: Full Code 11/09/17 12:00 DNR [Resuscitation Status: Active] [RES] Routine Comment: Resuscitation Status: DNR-Comfort Care - Labs CBC & Chem 7: 11/10/17 04:13 11/10/17 04:13 Labs: Laboratory Results - last 24 hr 11/10/17 11/10/17 11/10/17 04:13 04:13 04:13 WBC 17.4 H RBC 2.42 L Hgb 7.6 L Hct 23.1 L MCV 95.5 MCH 31.4 MCHC 32.9 RDW 15.6 H Plt Count 255 MPV 11.2 Immature Gran % 3.6 Seg Neutrophils % 79.5 Lymphocytes % 9.2 Monocytes % 5.9 Eosinophils % 1.6 Basophils % 0.2 Neutrophils # 13.8 H Lymphocytes # 1.6 Monocytes # 1.0 Eosinophils # 0.3 Basophils # 0.0 APTT 28.6 Sodium 132 L Potassium 4.8 Chloride 108 H Carbon Dioxide 17 L BUN 99 H Creatinine 2.53 H Est GFR ( Amer) 29 L Est GFR (Non-Af Amer) 24 L BUN/Creatinine Ratio 39 H Glucose 98 Calculated Osmolality 305 H Calcium 8.5 L - ABG Interpretation ABG results: PT/INR, D-dimer PT 14.4 Seconds (9.4-12.1) H 11/08/17 00:33 Consult Discharge Plan - Plan Referrals: Lacho Bucio DO [Family Provider] - Aysha Huddleston, [employer] [Primary Care Provider] -
--- NOTE | 2017-11-10 10:52 | Infectious Disease Progress No ---
Date of Encounter: 11/10/17 Time of Encounter: 10:50 - Assessment and Plan (1) Sepsis Current Visit: Yes Status: Acute The patient had two SIRS criteria on admission plus NORY. Likely secondary to candidemia and bacteremia. Improved. WBC was trending down, but back up this morning. Hypotension has improved. Blood cultures drawn 11/08/17 are positive 1/2 sets for E. cloacae per culture and PCR. The PCR also picked up C. parapsilosis. Repeat blood culture drawn 11/09/17 is NGTD x 1 set. Repeat blood cultures x 2 sets now. Qualifiers: Sepsis type: sepsis due to unspecified organism Qualified Code(s): A41.9 - Sepsis, unspecified organism (2) Candidemia Current Visit: Yes Status: Acute Causative organism C. parapsilosis. Source likely the urinary tract. Blood cultures drawn 11/08/17 are positive for C. parapsilosis per PCR, but the culture did not pick out hand anything. Continue fluconazole 200mg IV daily. Get opthalmology to evaluate. Repeat blood cultures x 2 sets now. Check LFTs now. Add to AM labs. Duration of treatment depends on the clinical picture, but likely 14 days from the first set of negative blood cultures. Monitor renal and liver function and dose-adjust antibiotics. (3) Bacteremia due to Enterobacter species Current Visit: Yes Status: Acute Causative organism: E. cloacae. Source unclear, but likely the urinary tract. Blood cultures drawn 11/08/17 are positive 1/2 sets for E. cloacae per culture and PCR. Repeat blood culture 11/09/17 is NGTD x 1 set. Repeat blood cultures x 2 sets now. Continue Ertapenem 500mg IV daily. Dose adjusted for low CrCl. Duration of treatment depends on the clinical picture. Monitor renal function and dose-adjust antibiotics. (4) UTI (urinary tract infection) Current Visit: Yes Status: Acute Urinalysis positive for leukocyte esterase, but no culture was sent. Continue antibiotics as above. Qualifiers: Urinary tract infection type: catheter-associated UTI Indwelling urinary catheter type: indwelling urethral catheter Encounter type: initial encounter Qualified Code(s): T83.511A - Infection and inflammatory reaction due to indwelling urethral catheter, initial encounter; N39.0 - Urinary tract infection , site not specified (5) NORY (acute kidney injury) Current Visit: Yes Status: Acute Likely secondary to sepsis. Continue to trend. Dose-adjust antibiotics. Strict I's and O's. Avoid nephrotoxins as able. (6) Urinary retention Current Visit: Yes Status: Acute Likely secondary to enlarged prostate. Chronic agarwal catheter. Urology consulted. Consider agarwal catheter exchange prior to discharge. (7) NSTEMI (non-ST elevated myocardial infarction) Current Visit: Yes Status: Acute Ejection fraction all the way down to 10. Cardiology is following. Prognosis guarded. 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 No acute events noted overnight. Patient sitting up in the wheelchair at bedside. Complains of pain in his bottom from lying in bed. Denies fevers, chills, or rigors. Denies chest pain, shortness of breath, or cough. Denies nausea, vomiting, or diarrhea. Denies abdominal pain. Agarwal catheter remains patent. Denies oral thrush or new skin lesions. Infect Dis PN-Objective Data - Labs CBC & Chem 7: 11/10/17 04:13 11/10/17 04:13 Labs: Laboratory Results - last 24 hr 11/10/17 11/10/17 11/10/17 04:13 04:13 04:13 WBC 17.4 H RBC 2.42 L Hgb 7.6 L Hct 23.1 L MCV 95.5 MCH 31.4 MCHC 32.9 RDW 15.6 H Plt Count 255 MPV 11.2 Immature Gran % 3.6 Seg Neutrophils % 79.5 Lymphocytes % 9.2 Monocytes % 5.9 Eosinophils % 1.6 Basophils % 0.2 Neutrophils # 13.8 H Lymphocytes # 1.6 Monocytes # 1.0 Eosinophils # 0.3 Basophils # 0.0 APTT 28.6 Sodium 132 L Potassium 4.8 Chloride 108 H Carbon Dioxide 17 L BUN 99 H Creatinine 2.53 H Est GFR ( Amer) 29 L Est GFR (Non-Af Amer) 24 L BUN/Creatinine Ratio 39 H Glucose 98 Calculated Osmolality 305 H Calcium 8.5 L Cultures: Cultures 11/09/17 05:55 Blood Culture - Preliminary Peripheral Venipuncture No growth. 11/08/17 10:11 Blood Culture - Preliminary Peripheral Venipuncture No growth. 11/08/17 12:32 Blood Culture - Preliminary Peripheral Venipuncture Enterobacter cloacae Serology 11/08/17 Range/Units 12:32 A. baumannii (PCR) Not Detected (Not Detect) Vicki albicans (PCR) Not Detected (Not Detect) C. glabrata (PCR) Not Detected (Not Detect) C. krusei (PCR) Not Detected (Not Detect) C. parapsilosis (PCR) DETECTED A (Not Detect) C. tropicalis (PCR) Not Detected (Not Detect) Enterobacteriac sp PCR DETECTED A (Not Detect) E. cloacae complex PCR DETECTED A (Not Detect) Enterococcus sp PCR Not Detected (Not Detect) E. coli (PCR) Not Detected (Not Detect) H. influenzae (PCR) Not Detected (Not Detect) Klebsiella oxytoca PCR Not Detected (Not Detect) Klebsiella pneumoniae Not Detected (Not Detect) List. monocytogenes PCR Not Detected (Not Detect) N. meningitidis (PCR) Not Detected (Not Detect) Proteus species (PCR) Not Detected (Not Detect) Serratia marcescens PCR Not Detected (Not Detect) Staphylococcus sp PCR Not Detected (Not Detect) Staph aureus (PCR) Not Detected (Not Detect) mecA-Methicil Res Gene N/A (Not Detect) Streptococcus sp PCR Not Detected (Not Detect) Group A Strep DNA Not Detected (Not Detect) Group B Strep (PCR) Not Detected (Not Detect) Strep pneumoniae (PCR) Not Detected (Not Detect) P. aeruginosa (PCR) Not Detected (Not Detect) Feli/B-Vanco Res Genes N/A (Not Detect) KPC (blaKPC) Detect PCR Not Detected (Not Detect) Exam - Constitutional Vitals: Temp Pulse Resp BP Pulse Ox 97.6 F 67 18 94/51 99 11/10/17 07:09 11/10/17 07:09 11/10/17 07:49 11/10/17 07:09 11/10/17 09:36 General appearance: average body habitus, cooperative, no acute distress - Head Head exam: Present: atraumatic, normal inspection, normocephalic - Eye Eye exam: Present: EOMI, normal appearance, PERRL Pupils: Present: normal accommodation - ENT ENT exam: Present: mucous membranes moist - Neck Neck exam: Present: normal inspection - Respiratory Respiratory exam: Present: CTAB. Absent: rales, respiratory distress, rhonchi, wheezes - Cardiovascular Cardiovascular exam: Present: RRR, +S1, +S2 - GI/Abdominal GI/Abdominal exam: Present: normal bowel sounds, soft. Absent: distended, tenderness Additional comments: Agarwal catheter remains patent draining clear yellow urine. - Extremities Exam Extremities exam: Present: normal inspection, pedal edema (1+ BLE). Absent: joint swelling, tenderness - Neurological Exam Neurological exam: Present: alert, oriented X3, no focal deficits - Psychiatric Psychiatric exam: Present: normal affect, normal mood - Skin Skin exam: Present: dry, intact, normal color, warm Consult Discharge Plan - Plan Referrals: Lacho Bucio DO [Family Provider] - Aysha Huddleston CNP [Primary Care Provider] - - Attending Attestation I examined this patient and my medical decision-making was reviewed with the Resident Physician. I agree with the documented findings, disposition and treatment plan as described except to the extent set forth below.
[2017-11-10] MEDS: traMADol 50 MG TABLET PO PRN ×3 (11:55→22:28)
--- NOTE | 2017-11-10 13:36 | Internal Med Progress Note ---
Date of Encounter: 11/10/17 Time of Encounter: 13:33 - Assessment and plan (1) Sepsis Current Visit: Yes Status: Acute Assessment and plan: Due to Enterobacter Cloacae and Vicki. Most likely urinary source with chronic indwelling Radre catheter. Continue ertapenem and Diflucan. Infectious disease following. Repeat blood cultures have been sent. Also talked with ophthalmology and they will evaluate patient for endophthalmitis. High risk for complications. Patient is currently DNR comfort care per discussion with palliative care. They wished to pursue antibiotics for now. We will arrange for home antibiotics at time of discharge. Qualifiers: Sepsis type: sepsis due to unspecified organism Qualified Code(s): A41.9 - Sepsis, unspecified organism (2) NSTEMI (non-ST elevated myocardial infarction) Current Visit: Yes Status: Acute Assessment and plan: Conservative management with aspirin, beta tj. Not interested in pursuing intervention at this time. Poor ejection fraction. High risk for complications. (3) Prostate cancer metastatic to bone Current Visit: Yes Status: Acute Assessment and plan: Continue supportive care. Pain control with narcotic medications as needed. (4) Urinary retention Current Visit: Yes Status: Acute Assessment and plan: With chronic indwelling Rader catheter (5) NORY (acute kidney injury) Current Visit: Yes Status: Acute Assessment and plan: Stable renal function. Creatinine 2.53 today. (6) Hematuria Current Visit: Yes Status: Acute Assessment and plan: Urology following. Blood counts remained low but stable. Avoiding anticoagulation due to hematuria (7) Anemia Current Visit: Yes Status: Acute Assessment and plan: Hemoglobin levels remained stable at this time. Acute on chronic anemia related to hematuria. Avoid anticoagulation. Monitor vital signs closely. Monitor CBC and H&H closely. Qualifiers: Anemia type: other cause Other causes of anemia: chronic disease, neoplastic Qualified Code(s): D63.0 - Anemia in neoplastic disease - Time Spent With Patient Total time spent is greater than 50% in coordination of care (as documented) at patient's floor/unit and/or counseling patient: - Subjective Interval history: Patient is lying in bed. Uncomfortable due to pain and pressure left hip. Son present at bedside. At this time they wish to pursue antibiotics and then transitioned to hospice at home. - Constitutional Vitals: Temp Pulse Resp BP Pulse Ox 97.8 F 74 17 116/64 94 11/10/17 10:59 11/10/17 10:59 11/10/17 13:28 11/10/17 10:59 11/10/17 13:28 General appearance: Present: cooperative, A&O X 3, pleasant, answers questions appropriately - Eye Eye exam: Present: PERRL, conjuntiva pink, sclera anicteric Pupils: Present: PERRL - Neck Neck exam general surgery: Present: supple, trachea midline. Absent: lymphadenopathy - Respiratory Respiratory exam: Present: CTAB. Absent: accessory muscle use, rales, rhonchi, wheezes - Cardiovascular Cardiovascular exam: Present: RRR, +S1, +S2. Absent: diastolic murmur, gallop, rubs, systolic murmur - GI/Abdominal GI/Abdominal exam: Present: normal bowel sounds, soft, no peritoneal signs. Absent: distended, tenderness - Extremities Exam Extremities exam: Present: warm, radial pulses palpable and symmetrical. Absent : calf tenderness, cyanotic, pedal edema Internal Medicine: Result - Labs CBC & Chem 7: 11/10/17 04:13 11/10/17 04:13 Labs: Short CBC 11/10/17 Range/Units 04:13 WBC 17.4 H (4.3-11.1) K/mcL Hgb 7.6 L (12.9-16.9) g/dL Hct 23.1 L (37.5-50.1) % Plt Count 255 (140-400) K/mcL Neutrophils # 13.8 H (1.6-8.9) K/mcL BMP 11/10/17 04:13 Sodium 132 L Potassium 4.8 Chloride 108 H Carbon Dioxide 17 L BUN 99 H Creatinine 2.53 H Glucose 98 Calcium 8.5 L - ABG Interpretation ABG results: PT/INR, D-dimer PT 14.4 Seconds (9.4-12.1) H 11/08/17 00:33 Consult Discharge Plan - Plan Referrals: Lacho Bucio DO [Family Provider] - Aysha Huddleston, [employer] [Primary Care Provider] -
--- NOTE | 2017-11-10 17:56 | Internal Medicine Consult Note ---
Date of Encounter: 11/10/17 Time of Encounter: 17:35 Internal Medicine - CN: HPI - Data of Consult Requesting Physician: Robert Pierce MD Consultation was requested to rule out endophthalmitis due to sepsis with Vicki. Patient is a poor historian. He reports that he has macular degeneration and poor vision. I could not determine from his history whether there has been any recent change in his vision but he says that he did have an eye examination about a month ago with Dr. Santoyo. Examination revealed visual acuity with correction of 20/400 right eye and 20/ 400 left eye (near equivalent Snellen visual acuity). The external examination was unremarkable. Extraocular motility testing revealed no restrictions but limited excursions of both eyes. The pupils were small equal round and sluggish to fixed in response to light. Digital palpation estimation of intraocular pressures was unremarkable in both eyes. Confrontation visual meza were unreliable/unable to be performed. Both eyes were dilated with 1% tropicamide and 2-1/2% phenylephrine drops. Further examination revealed normal eyelids in both eyes. The conjunctiva was normal in both eyes. The cornea was clear and normal in both eyes. The anterior chamber was deep and clear in both eyes. The iris was normal in both eyes. Nuclear sclerotic cataracts were noted in both eyes. The vitreous was clear in both eyes. The optic nerve heads were normal in both eyes. The cup-to-disc ratio was approximately 0.35 in both eyes. Geographic atrophy and pigmented changes were noted in the macula in both eyes. The retinal vessels were normal in both eyes. The the posterior pole was otherwise unremarkable in both eyes. The retinal periphery was normal in both eyes. Impression: 1. No evidence of endophthalmitis was appreciated in this examination. 2. Nonexudative age-related macular degeneration in both eyes. 3. Nuclear sclerotic cataracts in both eyes. Recommendation: Continued care and monitoring. I would be happy to see the patient again should the clinical situation dictate. - Consult Narrative History of present illness: Mr. Go is a 87 year old male Past Med Surg Social Fam HX - Past Medical History Medical history: cancer, CHF, hypertension, other Psychiatric history: no psych history - Past Surgical History Surgical History: other - Social History Smoking Status: Never smoker Smokeless Tobacco Status: Yes Alcohol use: none Drug use: none Internal Medicine - CN: Meds Aspirin 325 mg PO DAILY 10/07/17 [History] Carvedilol [Coreg] 6.25 mg PO BID 10/07/17 [History] Cholecalciferol (Vitamin D3) [Vitamin D3] 2,000 unit PO DAILY 10/07/17 [History] Lisinopril [Zestril] 20 mg PO DAILY 10/07/17 [History] Nitroglycerin [Nitrostat] 0.4 mg SL Q5MIN PRN 10/07/17 [History] Spironolactone [Aldactone] 25 mg PO DAILY 10/07/17 [History] Triamcinolone Acet 0.1% CRM [Kenalog] 1 appl TP DAILY 10/07/17 [History] Tamsulosin [Flomax] 0.4 mg PO DAILY 11/08/17 [History] 3 Allergy/AdvReac Type Severity Reaction Status Date / Time metoprolol AdvReac Confusion Verified 11/08/17 08:56 montelukast [From Singulair] AdvReac Confusion Verified 11/08/17 08:56 simvastatin [From Zocor] AdvReac Cramping Verified 11/08/17 08:56 of the Muscles Internal Medicine - CN: Exam - Constitutional Vitals: Temp Pulse Resp BP Pulse Ox 97.8 F 74 17 116/64 94 11/10/17 10:59 11/10/17 10:59 11/10/17 13:28 11/10/17 10:59 11/10/17 13:28 Internal Medicine - CN: Reslt - Labs CBC & Chem 7: 11/10/17 04:13 11/10/17 04:13 Labs: Short CBC 11/10/17 Range/Units 04:13 WBC 17.4 H (4.3-11.1) K/mcL Hgb 7.6 L (12.9-16.9) g/dL Hct 23.1 L (37.5-50.1) % Plt Count 255 (140-400) K/mcL Neutrophils # 13.8 H (1.6-8.9) K/mcL BMP 11/10/17 04:13 Sodium 132 L Potassium 4.8 Chloride 108 H Carbon Dioxide 17 L BUN 99 H Creatinine 2.53 H Glucose 98 Calcium 8.5 L - ABG Interpretation ABG results: PT/INR, D-dimer PT 14.4 Seconds (9.4-12.1) H 11/08/17 00:33 Consult Discharge Plan - Plan Referrals: Lacho Bucio DO [Family Provider] - Ayhsa Huddleston, SARA [Primary Care Provider] -
[2017-11-11 04:57] LABS: Basophils # 0.1 K/mcL (0.0-0.2); Basophils % 0.3 %; Eosinophils # 0.2 K/mcL (0.0-0.6); Eosinophils % 1.4 %; Hemoglobin 7.6 g/dL (12.9-16.9); Immature Granulocytes % 3.3 % (0-4); Lymphocytes # 1.4 K/mcL (0.6-4.6); Lymphocytes % 8.1 %; Mean Corpuscular HGB Conc 31.7 g/dL (31.6-35.5); Mean Corpuscular Volume 94.9 fL (83.0-100.0); Monocytes # 1.1 K/mcL (0.0-1.3); Monocytes % 6.3 %; Neutrophils # 13.6 K/mcL (1.6-8.9); Platelet Count 279 K/mcL (140-400); Red Blood Count 2.53 M/mcL (4.19-5.50); Red Cell Distribution Width 15.7 % (11.5-14.5); Segmented Neutrophils % 80.6 %
[2017-11-11 05:06] LABS: Calcium 8.6 mg/dL (8.6-10.3); Potassium 4.9 mEq/L (3.5-5.1)
[2017-11-11] MEDS: *HR* Heparin 5,000 UNIT/ML VIAL SQ SCH ×2 (05:30→17:21)
[2017-11-11] MEDS: Aspirin Enteric Coated 81 MG Tablet PO SCH (08:53)
[2017-11-11] MEDS: Cholecalciferol (D-3) 1,000 UNIT TABLET PO SCH (08:53)
[2017-11-11] MEDS: 0.9 % Sodium Chloride 1,000 ML IVC SCH (08:54)
[2017-11-11] MEDS: Fluconazole 200 MG/100 ML 200 MG/100 ML BAG IVPB SCH (08:56)
[2017-11-11] MEDS: traMADol 50 MG TABLET PO PRN (08:58)
[2017-11-11 10:48] LABS: Albumin 2.5 g/dL (3.5-5.7); Albumin/Globulin Ratio 0.8 (1.1-2.2); Bilirubin,Direct 0.2 mg/dL (0.0-0.2); Bilirubin,Indirect 0.2 mg/dL (0.0-1.2); Bilirubin,Total 0.4 mg/dL (0.3-1.0); Globulin 3.1 g/dL (2.4-3.5); Total Protein 5.6 g/dL (6.4-8.9)
--- NOTE | 2017-11-11 11:50 | Infectious Disease Progress No ---
Date of Encounter: 11/11/17 Time of Encounter: 11:47 - Assessment and Plan (1) Sepsis Current Visit: Yes Status: Acute The patient had two SIRS criteria on admission plus NORY. Likely secondary to candidemia and bacteremia. Improved. WBC was trending down, but back up this morning. Hypotension has improved. Blood cultures drawn 11/08/17 are positive 1/2 sets for E. cloacae per culture and PCR. The PCR also picked up C. parapsilosis. Repeat blood culture drawn 11/09/17 is NGTD x 1 set. Repeat blood cultures x 2 sets now. Qualifiers: Sepsis type: sepsis due to unspecified organism Qualified Code(s): A41.9 - Sepsis, unspecified organism (2) Candidemia Current Visit: Yes Status: Acute Causative organism C. parapsilosis. Source likely the urinary tract. Blood cultures drawn 11/08/17 are positive for C. parapsilosis per PCR, but the culture did not lease picker anything. Continue fluconazole 200mg IV daily. Appreciate ophthalmology evaluation. Patient has not gone [facility] Repeat blood cultures x 2 sets now. Check LFTs now. Add to AM labs. Duration of treatment depends on the clinical picture, but likely 14 days from the first set of negative blood cultures. May switch him to oral Diflucan was ready for discharge. Once creatinine clearance goes above 50 we will have to go to 400 mg by mouth daily Monitor renal and liver function and dose-adjust antibiotics. (3) Bacteremia due to Enterobacter species Current Visit: Yes Status: Acute Causative organism: E. cloacae. Pansensitive Source unclear, but likely the urinary tract. Blood cultures drawn 11/08/17 are positive 1/2 sets for E. cloacae per culture and PCR. Repeat blood culture 11/09/17 is NGTD x 1 set. Repeat blood cultures x 2 sets now. Continue Ertapenem 500mg IV daily. Dose adjusted for low CrCl. Duration of treatment 2 weeks total. Patient may be switched to oral Bactrim or levofloxacin to finish the 14 day course once ready for discharge Monitor renal function and dose-adjust antibiotics. (4) UTI (urinary tract infection) Current Visit: Yes Status: Acute Urinalysis positive for leukocyte esterase, but no culture was sent. Continue antibiotics as above. Qualifiers: Urinary tract infection type: catheter-associated UTI Indwelling urinary catheter type: indwelling urethral catheter Encounter type: initial encounter Qualified Code(s): T83.511A - Infection and inflammatory reaction due to indwelling urethral catheter, initial encounter; N39.0 - Urinary tract infection , site not specified (5) NORY (acute kidney injury) Current Visit: Yes Status: Acute Likely secondary to sepsis. Continue to trend. Dose-adjust antibiotics. Strict I's and O's. Avoid nephrotoxins as able. (6) Urinary retention Current Visit: Yes Status: Acute Likely secondary to enlarged prostate. Chronic agarwal catheter. Urology consulted. Consider agarwal catheter exchange prior to discharge. (7) NSTEMI (non-ST elevated myocardial infarction) Current Visit: Yes Status: Acute Ejection fraction all the way down to 10. Cardiology is following. Prognosis guarded. 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 No changes in last 24 hours. Clinically unchanged. Hemodynamically stable. Continues to be afebrile. Infect Dis PN-Objective Data - Labs CBC & Chem 7: 11/11/17 03:58 11/11/17 03:58 Labs: Laboratory Results - last 24 hr 11/10/17 11/11/17 11/11/17 04:13 03:58 03:58 WBC 16.9 H RBC 2.53 L Hgb 7.6 L Hct 24.0 L MCV 94.9 MCH 30.0 MCHC 31.7 RDW 15.7 H Plt Count 279 MPV 11.0 Immature Gran % 3.3 Seg Neutrophils % 80.6 Lymphocytes % 8.1 Monocytes % 6.3 Eosinophils % 1.4 Basophils % 0.3 Neutrophils # 13.6 H Lymphocytes # 1.4 Monocytes # 1.1 Eosinophils # 0.2 Basophils # 0.1 Sodium 132 L 134 L Potassium 4.8 4.9 Chloride 108 H 110 H Carbon Dioxide 17 L 17 L BUN 99 H 84 H Creatinine 2.53 H 1.97 H Est GFR ( Amer) 29 L 39 L Est GFR (Non-Af Amer) 24 L 32 L BUN/Creatinine Ratio 39 H 43 H Glucose 98 104 Calculated Osmolality 305 H 304 H Calcium 8.5 L 8.6 Total Bilirubin 0.4 Direct Bilirubin 0.2 Indirect Bilirubin 0.2 AST 11 L ALT 21 Alkaline Phosphatase 84 Serum Total Protein 5.6 L Albumin 2.5 L Globulin 3.1 Albumin/Globulin Ratio 0.8 L Cultures: Cultures 11/08/17 12:32 Blood Culture - Final Peripheral Venipuncture Enterobacter cloacae 11/09/17 05:55 Blood Culture - Preliminary Peripheral Venipuncture No growth. 11/08/17 10:11 Blood Culture - Preliminary Peripheral Venipuncture No growth. Serology 11/08/17 Range/Units 12:32 A. baumannii (PCR) Not Detected (Not Detect) Vicki albicans (PCR) Not Detected (Not Detect) C. glabrata (PCR) Not Detected (Not Detect) C. krusei (PCR) Not Detected (Not Detect) C. parapsilosis (PCR) DETECTED A (Not Detect) C. tropicalis (PCR) Not Detected (Not Detect) Enterobacteriac sp PCR DETECTED A (Not Detect) E. cloacae complex PCR DETECTED A (Not Detect) Enterococcus sp PCR Not Detected (Not Detect) E. coli (PCR) Not Detected (Not Detect) H. influenzae (PCR) Not Detected (Not Detect) Klebsiella oxytoca PCR Not Detected (Not Detect) Klebsiella pneumoniae Not Detected (Not Detect) List. monocytogenes PCR Not Detected (Not Detect) N. meningitidis (PCR) Not Detected (Not Detect) Proteus species (PCR) Not Detected (Not Detect) Serratia marcescens PCR Not Detected (Not Detect) Staphylococcus sp PCR Not Detected (Not Detect) Staph aureus (PCR) Not Detected (Not Detect) mecA-Methicil Res Gene N/A (Not Detect) Streptococcus sp PCR Not Detected (Not Detect) Group A Strep DNA Not Detected (Not Detect) Group B Strep (PCR) Not Detected (Not Detect) Strep pneumoniae (PCR) Not Detected (Not Detect) P. aeruginosa (PCR) Not Detected (Not Detect) Feli/B-Vanco Res Genes N/A (Not Detect) KPC (blaKPC) Detect PCR Not Detected (Not Detect) Exam - Constitutional Vitals: Temp Pulse Resp BP Pulse Ox 98.4 F 74 17 100/62 98 11/11/17 06:43 11/11/17 06:43 11/11/17 06:43 11/11/17 06:43 11/11/17 06:43 General appearance: disheveled, no acute distress, no febrile - Respiratory Respiratory exam: Present: CTAB, rhonchi - Cardiovascular Cardiovascular exam: Present: RRR, +S1, +S2 - GI/Abdominal GI/Abdominal exam: Present: normal bowel sounds, soft. Absent: tenderness Consult Discharge Plan - Plan Referrals: Lacho Bucio DO [Family Provider] - Aysha Huddleston CNP [Primary Care Provider] -
--- NOTE | 2017-11-11 14:00 | Discharge Summary ---
- NOTES TO OUTPATIENT PROVIDER Notes to Outpatient Provider: Patient admitted with sepsis and non-ST elevation MO. Has refused intervention. As such was treated with antibiotics and palliative care consulted. Conservative management continued. At this time patient and family wished to go home on hospice given his overall poor prognosis. Patient will be discharged on oral antibiotics and on hospice once arrangements are made for this. Orders not resulted at time of discharge: Pending orders 11/08/17 12:32 Culture,Blood [BC] Routine 11/09/17 05:55 Culture,Blood [BC] AM 0400 11/10/17 12:44 Culture,Blood,Additional [BC] Stat 11/12/17 04:00 Basic Metabolic Panel AM 0400 CBC [Complete Blood Count] [HEME] AM 0400 11/13/17 04:00 Basic Metabolic Panel AM 0400 CBC [Complete Blood Count] [HEME] AM 0400 11/14/17 04:00 Basic Metabolic Panel AM 0400 CBC [Complete Blood Count] [HEME] AM 0400 Date of Encounter: 11/11/17 Time of Encounter: 13:58 - Discharge Diagnosis (1) Sepsis Priority: Primary Status: Acute Assessment and Plan: and enterobacter cloacae Qualifiers: Sepsis type: Patrick Qualified Code(s): B37.7 - Candidal sepsis (2) NSTEMI (non-ST elevated myocardial infarction) Priority: Secondary Status: Acute (3) Ischemic cardiomyopathy Priority: Secondary Status: Acute (4) Prostate cancer metastatic to bone Priority: Secondary Status: Acute (5) Urinary retention Priority: Secondary Status: Acute (6) NORY (acute kidney injury) Priority: Secondary Status: Acute (7) Hematuria Priority: Secondary Status: Acute Qualifiers: Hematuria type: gross Qualified Code(s): R31.0 - Gross hematuria (8) Anemia Priority: Secondary Status: Acute Qualifiers: Anemia type: other cause Other causes of anemia: chronic disease, neoplastic Qualified 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 Go is a 87 year old male patient with history of bladder cancer as well as metastatic prostate who was admitted with sepsis and non-ST elevation MO. He was recommended left heart catheterization but he denied this procedure and opted for conservative management. 2-D echocardiogram was done which showed poor ejection fraction of 10-15%. He was also septic with bacteremia. Blood cultures are growing Enterobacter cloacae and were also serologically positive for Patrick. Given his comorbidities and poor heart function, palliative care was consulted. After meeting with the family, they decided to change the patient's CODE STATUS to DNR comfort care and take the patient home on hospice. They wish to continue treating his infection with antibiotics. She was evaluated by infectious disease and given his poor overall prognosis, has been recommended that he be discharged home on oral antibiotics and Diflucan to complete 14 day treatment course. He will be discharged on hospice later today. Discharge discussed with: patient, family, nurse, case management, clinical education consultant - Time Spent with Patient Total time spent providing and/or coordinating discharge services: Greater than 30 minutes (35 min) - Discharge Medications Prescriptions: Aspirin Enteric Coated [Aspirin EC] 81 mg PO DAILY #30 tablet. Fluconazole [Diflucan] 200 mg PO DAILY #24 tablet MORPHINE SUL Oral CONC [Roxanol Oral Conc] 5 mg PO Q4H PRN 7 Days #15 ml PRN Reason: severe pain. Tramadol HCl [Ultram] 50 mg PO Q4H PRN 7 Days #30 tab PRN Reason: Moderate Pain Home Medications: Carvedilol [Coreg] 6.25 mg PO BID 10/07/17 [History] Cholecalciferol (Vitamin D3) [Vitamin D3] 2,000 unit PO DAILY 10/07/17 [History] Nitroglycerin [Nitrostat] 0.4 mg SL Q5MIN PRN 10/07/17 [History] Triamcinolone Acet 0.1% CRM [Kenalog] 1 appl TP DAILY 10/07/17 [History] Tamsulosin [Flomax] 0.4 mg PO DAILY 11/08/17 [History] Aspirin Enteric Coated [Aspirin EC] 81 mg PO DAILY #30 tablet. 11/11/17 [Rx] Fluconazole [Diflucan] 200 mg PO DAILY #24 tablet 11/11/17 [Rx] MORPHINE SUL Oral CONC [Roxanol Oral Conc] 5 mg PO Q4H PRN 7 Days #15 ml [Rx] Tramadol HCl [Ultram] 50 mg PO Q4H PRN 7 Days #30 tab 11/11/17 [Rx] Allergies/Adverse Reactions: 3 Allergy/AdvReac Type Severity Reaction Status Date / Time metoprolol AdvReac Confusion Verified 11/08/17 08:56 montelukast [From Singulair] AdvReac Confusion Verified 11/08/17 08:56 simvastatin [From Zocor] AdvReac Cramping Verified 11/08/17 08:56 of the Muscles Date of admission: 11/07/17 23:06 Primary care physician: Aysha Huddleston CNP Consults: 11/07/17 23:53 Consult to Cardiology [CONS] Routine Comment: Consulting Provider: Cardiology [place] Reason for Consult: NSTEMI Call Completed: Yes 11/08/17 03:50 Consult to Urology [CONS] Routine Consulting Provider: Urology [place] Reason for Consult: prostate ca, blood from catheter Call Completed: No 11/08/17 08:21 Consult to Palliative Care [CONS] Routine Comment: Consulting Provider: Palliative Care [place] Reason for Consult: assistance with goals of care Call Completed: Yes 11/09/17 07:50 Consult to Infectious Diseases [CONS] Routine Consulting Provider: Infectious Disease [place] Reason for Consult: Gram negative and patrick bacteremia Call Completed: Yes 11/10/17 17:31 Consult to Physician [CONS] Routine Consulting Provider: Damian Mo Reason for Consult: r/o endophatlamitis Time Notified: 17:33 Call Completed: Yes Discharging clinician: Robert Pierce Anticipated date of discharge: 11/11/17 - Constitutional Vitals: Temp Pulse Resp BP Pulse Ox 98.4 F 74 17 100/62 98 11/11/17 06:43 11/11/17 06:43 11/11/17 06:43 11/11/17 06:43 11/11/17 06:43 General appearance: Present: cooperative, A&O X 3, pleasant, answers questions appropriately - Neck Neck exam general surgery: Present: supple, trachea midline. Absent: lymphadenopathy - Respiratory Respiratory exam: Present: decreased breath sounds (at both bases), prolonged expiratory phase. Absent: accessory muscle use, rales, rhonchi, wheezes - Cardiovascular Cardiovascular exam: Present: RRR, +S1, +S2. Absent: diastolic murmur, gallop, rubs, systolic murmur - GI/Abdominal GI/Abdominal exam: Present: normal bowel sounds, soft, no peritoneal signs. Absent: distended, tenderness - Extremities Exam Extremities exam: Present: tenderness (left hip), warm, radial pulses palpable and symmetrical. Absent: calf tenderness, cyanotic, pedal edema - Skin Skin exam: Present: dry, intact - Patient Status Disposition: Hospice - Home Condition: Serious Functional capacity at discharge: bed bound Overall status at discharge: patient is not back to baseline - Discharge Instructions Instructions: Sepsis (DC), Anemia (GEN) Follow Up With: Lacho Bucio DO [Family Provider] - (in 1-2 weeks) - Diet and Activity Activity: increase activity as tolerated Diet: advance to your usual diet, low fat, low cholesterol, low salt diet
--- NOTE | 2017-11-11 14:13 | Physician Discharge Referral ---
Home Health/Hosp Referral Info Transfer to: Hospice Provider in Charge Post Discharge: [employer] - Diagnosis (1) Sepsis Priority: Primary Status: Acute (2) NSTEMI (non-ST elevated myocardial infarction) Priority: Secondary Status: Acute (3) Prostate cancer metastatic to bone Priority: Secondary Status: Acute (4) Urinary retention Priority: Secondary Status: Acute (5) NORY (acute kidney injury) Priority: Secondary Status: Acute (6) Hematuria Priority: Secondary Status: Acute (7) Anemia Priority: Secondary Status: Acute - Respiratory Orders Oxygen / L per min (For comfort) Smoking Cessation: Smoking cessation has been advised. For more information, call the [place] Tobacco Quit Line at 3-684-UGXH-NOW. - Diet/Nutrition Diet/Nutrition Orders: Cardiac - Activity Activity Orders: Bedrest - Services Needed Following services are medically necessary services: Nursing, Home Health Aide - Transfer Medications Prescriptions: OxyCODONE Immed Rel [Roxicodone 5 MG] 5 mg PO Q4HR PRN 7 Days #20 tablet PRN Reason: Severe Pain Aspirin Enteric Coated [Aspirin EC] 81 mg PO DAILY #30 tablet. Fluconazole [Diflucan] 200 mg PO DAILY #24 tablet Tramadol HCl [Ultram] 50 mg PO Q4H PRN 7 Days #30 tab PRN Reason: Moderate Pain Home Medications: Carvedilol [Coreg] 6.25 mg PO BID 10/07/17 [History] Cholecalciferol (Vitamin D3) [Vitamin D3] 2,000 unit PO DAILY 10/07/17 [History] Nitroglycerin [Nitrostat] 0.4 mg SL Q5MIN PRN 10/07/17 [History] Triamcinolone Acet 0.1% CRM [Kenalog] 1 appl TP DAILY 10/07/17 [History] Tamsulosin [Flomax] 0.4 mg PO DAILY 11/08/17 [History] Aspirin Enteric Coated [Aspirin EC] 81 mg PO DAILY #30 tablet. 11/11/17 [Rx] Fluconazole [Diflucan] 200 mg PO DAILY #24 tablet 11/11/17 [Rx] OxyCODONE Immed Rel [Roxicodone 5 MG] 5 mg PO Q4HR PRN 7 Days #20 tablet [Rx] Tramadol HCl [Ultram] 50 mg PO Q4H PRN 7 Days #30 tab 11/11/17 [Rx] Allergies/Adverse Reactions: 3 Allergy/AdvReac Type Severity Reaction Status Date / Time metoprolol AdvReac Confusion Verified 11/08/17 08:56 montelukast [From Singulair] AdvReac Confusion Verified 11/08/17 08:56 simvastatin [From Zocor] AdvReac Cramping Verified 11/08/17 08:56 of the Muscles Certification: Further, I certify that my clinical findings support that this patient is homebound (i.e. absences from home require considerable and taxing effort and are for medical reasons or baptism services or infrequently or short duration when for other reasons) because: Homebound Reason: Patient requires assistance of a person or device to safely leave home, Severity of cardiac or pulmonary status limits activity tolerance Attestation: My signature below is to certify that this patient is under my care and that I, or nurse practitioner, or a physician's visitor services information assistant working with me, has a face-to -face encounter with this patient.
--- NOTE | 2017-11-11 15:01 | Event Note ---
Date of Encounter: 11/11/17 Time of Encounter: 14:30 Patient to be DC'd to home with [facility] hosp[facility] care. Daughter Shanta at bedside and met with [facility] team. Patient DME being set-up and once in place will transition to home. State DNR form completed and comfort medication prescriptions completed. Patient is DNRCC - Comfort Care.
[2017-11-11 15:20] VITALS: BP 110/65
== END 2017-11-11 18:14 | disposition hospice, home (50) | DRG 698 ==
LOC: SUATTDRO 23:06 → ICNU 23:06 → 2ANU 11-08 11:39
PROVIDERS: ADMIT Pediatrics; ATTEND Internal Medicine